=== PATIENT | female | born 1985 | race American Indian/Alaskan Native ===

== ENCOUNTER 2016-08-21 13:41 | Emergency (ER) | payer MEDICAID ==
[2016-08-21] MEDS ORDERED: Ibuprofen 800 MG Tab PO ONE (13:59)
--- NOTE | 2016-08-21 14:00 | EDM.PDOC ---
ED HPI GENERAL MEDICAL PROBLEM - General Stated Complaint: MISSED STEP LEFT KNEE Time Seen by Provider: 08/21/16 14:00 Source of Information: Reports: Patient History Limitations: Reports: No Limitations - History of Present Illness INITIAL COMMENTS - FREE TEXT/NARRATIVE: Presented with painful swollen left Knee following an episode of mechanical Fall last night. Reports that while she was walking down stairs, she missed her step and Fell down last night and landed on her Left Knee. Rates pain as 9/10 in severity. Rates pain as 9/10. She is able to weight bear but reports that pain worsens with ambulation Duration: Day(s): Location: Reports: Lower Extremity, Left Quality: Reports: Sharp Improves with: Reports: None Worsens with: Reports: Movement Associated Symptoms: Reports: No Other Symptoms Right Knee Pain Score (Numeric/FACES): 2 - Related Data Allergies Allergy/AdvReac Type Severity Reaction Status Date / Time No Known Allergies Allergy Verified 08/21/16 14:19 Home Meds: Home Meds Hydrocodone/Acetaminophen [[place] 5-325 Tablet] 1 each PO .Q6H PRN #20 tablet [Rx] Past Medical History HEENT History: Reports: Impaired Vision, Otitis Media, Sinusitis Cardiovascular History: Reports: None Respiratory History: Reports: Asthma, SOB Gastrointestinal History: Reports: GERD Genitourinary History: Reports: None ENDOSCOPY RN History: Reports: Other (See Below) Other OB/BYN History: INVERTED PELVIS Musculoskeletal History: Reports: Back Pain, Chronic Other Musculoskeletal History: rt shoulder dislocation Neurological History: Reports: Migraines Psychiatric History: Reports: None Endocrine/Metabolic History: Reports: Obesity/BMI 30+ Hematologic History: Reports: None Dermatologic History: Reports: Cellulitis - Infectious Disease History Infectious Disease History: Reports: Chicken Pox - Past Surgical History HEENT Surgical History: Reports: Adenoidectomy, Oral Surgery, Tonsillectomy Female Surgical History: Reports: Section Musculoskeletal Surgical History: Reports: Other (See Below) Social & Family History - Family History Family Medical History: Noncontributory - Tobacco Use Smoking Status *Q: Current Every Day Smoker Years of Tobacco use: 10 Packs/Tins Daily: 1 Used Tobacco, but Quit: No Second Hand Smoke Exposure: No - Caffeine Use Caffeine Use: Reports: Coffee - Alcohol Use Days Per Week of Alcohol Use: 1 Number of Drinks Per Day: 6 Total Drinks Per Week: 6 - Recreational Drug Use Recreational Drug Use: No Recreational Drug Type: Reports: Marijuana/Hashish Recreational Drug Use Frequency: Rarely Review of Systems - Review of Systems Review Of Systems: ROS reveals no pertinent complaints other than HPI. Constitutional: Reports: No Symptoms ED EXAM, GENERAL - Physical Exam Exam: See Below Exam Limited By: No Limitations General Appearance: Alert, WD/WN, No Apparent Distress Eye Exam: Bilateral Eye: EOMI Ears: Normal External Exam, Normal Canal, Hearing Grossly Normal, Normal TMs Nose: Normal Inspection, Normal Mucosa, No Blood Throat/Mouth: Normal Inspection, Normal Lips, Normal Teeth, Normal Oropharynx Head: Atraumatic, Normocephalic Neck: Normal Inspection, Supple, Full Range of Motion Respiratory/Chest: No Respiratory Distress, Lungs Clear, Normal Breath Sounds Cardiovascular: Normal Peripheral Pulses, Regular Rate, Rhythm GI/Abdominal: Normal Bowel Sounds, Soft, Non-Tender, No Organomegaly, No Distention Back Exam: Normal Inspection, Full Range of Motion Extremities: Normal Inspection, Normal Range of Motion, Non-Tender, Other (Left knee -- swollen, tender, decreased ROM left knee) Neurological: Alert, Oriented, CN II-XII Intact, Normal Cognition Psychiatric: Normal Affect, Normal Mood Skin Exam: Warm, Dry Lymphatic: No Adenopathy Course - Vital Signs Last Recorded V/S: Last Vital Signs Temp 36.8 C 08/21/16 13:45 Pulse 88 08/21/16 13:45 Resp 20 08/21/16 13:45 BP 152/72 H 08/21/16 13:45 Pulse Ox 98 08/21/16 13:45 - Orders/Labs/Meds Orders: Active Orders 24 hr Category Date Time Status Knee 3V Lt [CR] Stat Exams 08/21/16 13:58 Taken Meds: Medications Discontinued Medications Generic Name Dose Route Start Last Admin Trade Name Freq PRN Reason Stop Dose Admin Ibuprofen 800 mg 08/21/16 13:59 Motrin PO 08/21/16 14:00 ONETIME ONE Departure - Departure Time of Disposition: 14:42 Disposition: Home, Self-Care 01 Condition: Good Clinical Impression: Contusion of knee, Sprain of knee - Discharge Information Prescriptions: Hydrocodone/Acetaminophen [[place] 5-325 Tablet] 1 each PO .Q6H PRN #20 tablet PRN Reason: Pain Instructions: Knee Pain Referrals: Graeme Hein MD [Primary Care Provider] - Forms: ED Department Discharge Additional Instructions: Follow with PCP Smooth for pain Return if symptoms worsen Call your Physician or Return to Emergency Department if: * Your condition worsens in any way. * You develop fever greater than 100.4. * You have vomitting that does not stop with medications. * You have pain that is not controlled with medications. - My Orders Last 24 Hours: My Active Orders 08/21/16 13:58 Knee 3V Lt [CR] Stat - Assessment/Plan Last 24 Hours: My Active Orders 08/21/16 13:58 Knee 3V Lt [CR] Stat
[2016-08-21 14:25] VITALS: BP 152/72
[2016-08-21] MEDS ORDERED: Acetaminophen/HYDROcodone 325-5 MG Tab PO ONE (17:41)
== END 2016-08-21 14:45 | disposition home or self-care (01) ==
LOC: FB.ED 13:41
DX: S80.02XA Contusion of left knee, initial encounter (principal); S83.92XA Sprain of unspecified site of left knee, initial encounter; W10.8XXA Fall (on) (from) other stairs and steps, initial encounter; Y92.9 Unspecified place or not applicable; J45.909 Unspecified asthma, uncomplicated; K21.9 Gastro-esophageal reflux disease without esophagitis; G89.29 Other chronic pain; M54.9 Dorsalgia, unspecified; E66.9 Obesity, unspecified; F17.210 Nicotine dependence, cigarettes, uncomplicated; F12.90 Cannabis use, unspecified, uncomplicated
CPT/HCPCS: 73562; 99283; A9270

== ENCOUNTER 2017-05-08 20:55 | Emergency (ER) | payer MEDICAID, SELFPAY ==
[2017-05-08] MEDS ORDERED: cefTRIAXone 1,000 MG VIAL IM STA (22:14)
--- NOTE | 2017-05-08 22:20 | EDM.PDOC ---
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 No direct trauma. Pt is 16-18 hours on her feet, no DVT in the past, no N/V/D or any other acute medical issues. BP 127/74 pulse 87 RR 18 Temp 36.9 O2 sat 98% on RA. Onset Date: 05/05/17 Onset Time: 06:00 Duration: Day(s):, Getting Worse, Intermittent Location: Reports: Lower Extremity, Right Quality: Reports: Ache, Burning, Dull, Pressure Severity: Moderate Improves with: Reports: Rest Worsens with: Reports: Movement Context: Reports: Other (sedentary lifestyle(?)) Associated Symptoms: Reports: No Other Symptoms Right Lower Leg Pain Score (Numeric/FACES): 2 - Related Data Allergies Allergy/AdvReac Type Severity Reaction Status Date / Time No Known Allergies Allergy Verified 08/21/16 14:19 Home Meds: Home Meds Hydrocodone/Acetaminophen [[place] 5-325 Tablet] 1 each PO .Q6H PRN #20 tablet [Rx] Cephalexin [Keflex] 500 mg PO QID #40 cap 05/08/17 [Rx] Past Medical History - Past Health History Medical/Surgical History: Denies Medical/Surgical History HEENT History: Reports: Impaired Vision, Otitis Media, Sinusitis Cardiovascular History: Reports: None Respiratory History: Reports: Asthma, SOB Gastrointestinal History: Reports: GERD Genitourinary History: Reports: None [employer] History: Reports: Other (See Below) Other OB/BYN History: INVERTED PELVIS Musculoskeletal History: Reports: Back Pain, Chronic Other Musculoskeletal History: rt shoulder dislocation Neurological History: Reports: Migraines Psychiatric History: Reports: None Endocrine/Metabolic History: Reports: Obesity/BMI 30+ Hematologic History: Reports: None Dermatologic History: Reports: Cellulitis - Infectious Disease History Infectious Disease History: Reports: Chicken Pox - Past Surgical History HEENT Surgical History: Reports: Adenoidectomy, Oral Surgery, Tonsillectomy Female Surgical History: Reports: Section Musculoskeletal Surgical History: Reports: Other (See Below) Social & Family History - Family History Family Medical History: Noncontributory - Tobacco Use Smoking Status *Q: Current Every Day Smoker Years of Tobacco use: 15 Packs/Tins Daily: 1 Used Tobacco, but Quit: No Second Hand Smoke Exposure: No - Caffeine Use Caffeine Use: Reports: Coffee, Energy Drinks - Alcohol Use Days Per Week of Alcohol Use: 1 Number of Drinks Per Day: 5 Total Drinks Per Week: 5 - Recreational Drug Use Recreational Drug Use: No Recreational Drug Type: Reports: Marijuana/Hashish Recreational Drug Use Frequency: Rarely Review of Systems - Review of Systems Review Of Systems: See Below Constitutional: Reports: No Symptoms Eyes: Reports: No Symptoms Ears: Reports: No Symptoms Nose: Reports: No Symptoms Mouth/Throat: Reports: No Symptoms Respiratory: Reports: No Symptoms Cardiovascular: Reports: No Symptoms GI/Abdominal: Reports: No Symptoms Genitourinary: Reports: No Symptoms Musculoskeletal: Reports: Leg Pain (right lower leg) Skin: Reports: Rash, Erythema (right lower leg) Neurological: Reports: No Symptoms Psychiatric: Reports: No Symptoms ED EXAM, GENERAL - Physical Exam Exam: See Below Exam Limited By: No Limitations General Appearance: Alert, WD/WN, Obese (morbid) Eye Exam: Bilateral Eye: Normal Inspection Ears: Normal External Exam Ear Exam: Bilateral Ear: Auricle Normal Nose: Normal Inspection Throat/Mouth: Normal Inspection Head: Atraumatic, Normocephalic Neck: Normal Inspection, Supple, Non-Tender, Full Range of Motion Respiratory/Chest: No Respiratory Distress, Lungs Clear, Normal Breath Sounds, No Accessory Muscle Use, Chest Non-Tender Cardiovascular: Normal Peripheral Pulses, Regular Rate, Rhythm, No Edema, No Gallop Peripheral Pulses: 1+: Radial (L) GI/Abdominal: Normal Bowel Sounds, Soft, Non-Tender (Female) Exam: Deferred Rectal (Female) Exam: Deferred Back Exam: Normal Inspection, Full Range of Motion Extremities: Normal Range of Motion, Normal Capillary Refill Neurological: Alert, Oriented, CN II-XII Intact, Normal Cognition, Normal Gait Psychiatric: Normal Affect, Normal Mood Skin Exam: Warm, Dry, Erythema (right lower leg), Rash Lymphatic: No Adenopathy Course - Vital Signs Text/Narrative:: 32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 No direct trauma. Pt is 16-18 hours on her feet, no DVT in the past, no N/V/D or any other acute medical issues. BP 127/74 pulse 87 RR 18 Temp 36.9 O2 sat 98% on RA. PE: 32 y.o.w.f with right lower leg swelling and erythema Imaging: Doppler US R leg neg for DVT pos for cellulitis Impression: Cellulitis R lower extremity Tx: Rocephin 1 gm im Reexam: Improved Plan: D/C with instructions Last Recorded V/S: Last Vital Signs Temp 36.8 C 05/08/17 22:15 Pulse 74 05/08/17 22:15 Resp 15 05/08/17 22:15 BP 127/71 05/08/17 22:15 Pulse Ox 97 05/08/17 22:15 - Orders/Labs/Meds Orders: Active Orders 24 hr Category Date Time Status VL Duplex Lwr Ext Veins Ltd Rt [US] Stat Exams 05/08/17 21:07 Taken CULTURE BLOOD [BC] Urgent Lab 05/08/17 21:15 Received CULTURE BLOOD [BC] Urgent Lab 05/08/17 21:20 Received Blood Culture x2 Reflex Set [OM.PC] Urgent Oth 05/08/17 21:06 Ordered Labs: Laboratory Tests 05/08/17 05/08/17 05/08/17 Range/Units 21:15 21:15 21:15 WBC 9.4 (4.5-12.0) X10-3/uL RBC 4.75 (3.23-5.20) x10(6)uL Hgb 14.7 (11.5-15.5) g/dL Hct 43.2 (30.0-51.3) % MCV 90.9 (80-96) fL MCH 31.0 (27.7-33.6) pg MCHC 34.1 (32.2-35.4) g/dL RDW 13.0 (11.5-15.5) % Plt Count 324 (125-369) X10(3)uL MPV 8.3 (7.4-10.4) fL Neut % (Auto) 63.5 (46-82) % Lymph % (Auto) 21.9 (13-37) % [place] % (Auto) 7.1 (4-12) % Eos % (Auto) 4 (1.0-5.0) % Baso % (Auto) 3 H (0-2) % Neut # (Auto) 5.9 (1.6-8.3) # Lymph # (Auto) 2.1 (0.6-5.0) # [place] # (Auto) 0.7 (0.0-1.3) # Eos # (Auto) 0.4 (0.0-0.8) # Baso # (Auto) 0.3 H (0.0-0.2) # PT 10.0 (8.7-11.1) INR 0.99 (0.89-1.13) Sodium 142 (135-145) mmol/L Potassium 3.8 (3.5-5.3) mmol/L Chloride 104 (100-110) mmol/L Carbon Dioxide 27 (21-32) mmol/L BUN 9 (7-18) mg/dL Creatinine 0.8 (0.55-1.02) mg/dL Est Cr Clr Drug Dosing 80.59 mL/min Estimated GFR (MDRD) > 60 (>60) BUN/Creatinine Ratio 11.3 (9-20) Glucose 106 (80-116) mg/dL Calcium 8.7 (8.6-10.2) mg/dL Meds: Medications Discontinued Medications Generic Name Dose Route Start Last Admin Trade Name Freq PRN Reason Stop Dose Admin Ceftriaxone Sodium 1,000 mg 05/08/17 22:14 05/08/17 22:24 Rocephin IM 05/08/17 22:15 1,000 mg ONETIME STA Administration Departure - Departure Time of Disposition: 22:16 Disposition: Home, Self-Care 01 Condition: Good Clinical Impression: Cellulitis of leg without foot, right - Discharge Information Prescriptions: Cephalexin [Keflex] 500 mg PO QID #40 cap Instructions: Cellulitis, Adult Referrals: Graeme Hein MD [Primary Care Provider] - Forms: ED Department Discharge Additional Instructions: Rest, Ice and elevation if possible, please keep your lag dry and clean. Please take the Abx as recommended, please f/u, come back to the ED if your symptoms get worse acutely. Motrin for pain. - My Orders Last 24 Hours: My Active Orders 05/08/17 21:06 Blood Culture x2 Reflex Set [OM.PC] Urgent 05/08/17 21:07 VL Duplex Lwr Ext Veins Ltd Rt [US] Stat 05/08/17 21:15 CULTURE BLOOD [BC] Urgent 05/08/17 21:20 CULTURE BLOOD [BC] Urgent - Assessment/Plan Last 24 Hours: My Active Orders 05/08/17 21:06 Blood Culture x2 Reflex Set [OM.PC] Urgent 05/08/17 21:07 VL Duplex Lwr Ext Veins Ltd Rt [US] Stat 05/08/17 21:15 CULTURE BLOOD [BC] Urgent 05/08/17 21:20 CULTURE BLOOD [BC] Urgent
[2017-05-08 22:41] VITALS: BP 127/71
--- NOTE | 2017-05-09 15:28 | US ---
INDICATION: Swelling right calf, question DVT. DUPLEX ULTRASOUND, RIGHT LOWER EXTREMITY VEINS: Utilizing 2-D real time, duplex Doppler spectral analysis and color flow imaging, examination of the right lower extremity veins revealed no evidence of deep venous thrombosis or obstruction. Compression views showed no abnormal lack of compression to suggest thrombosis. No evidence of incompetence of the valves was identified. IMPRESSION: Duplex ultrasound, right lower extremity veins, shows no evidence of deep venous thrombosis or incompetence. MTDD
== END 2017-05-08 22:41 | disposition home or self-care (01) ==
LOC: FB.ED 20:55
DX: L03.115 Cellulitis of right lower limb (principal); F17.210 Nicotine dependence, cigarettes, uncomplicated
CPT/HCPCS: 36415; 80048; 85025; 85610; 87040; 93971-RT; 96372; 99284; J0696

== ENCOUNTER 2017-11-25 16:50 | Emergency (ER) | payer MEDICAID ==
[2017-11-25] MEDS ORDERED: Albuterol 8 GM Inhaler INH ONE (16:51)
[2017-11-25] MEDS ORDERED: Albuterol 0.083% 2.5 MG/3 ML Neb Soln NEB ONE (17:26)
--- NOTE | 2017-11-25 17:31 | EDM.PDOC ---
ED HPI GENERAL MEDICAL PROBLEM - General Chief Complaint: Respiratory Problem Stated Complaint: sob Time Seen by Provider: 11/25/17 17:27 Source of Information: Reports: Patient History Limitations: Reports: No Limitations - History of Present Illness INITIAL COMMENTS - FREE TEXT/NARRATIVE: Presents with 2 days of nasal congestion, sinus pain, productive cough, and chest pain with cough. Patient is 21 weeks with EDC 03/31/18. Duration: Day(s): (2) Severity: Moderate Associated Symptoms: Reports: Shortness of Breath - Related Data Allergies Allergy/AdvReac Type Severity Reaction Status Date / Time No Known Allergies Allergy Verified 08/21/16 14:19 Home Meds: Home Meds Azithromycin [Zithromax] 250 mg PO DAILY #4 tab 11/25/17 [Rx] Past Medical History HEENT History: Reports: Impaired Vision, Otitis Media, Sinusitis Cardiovascular History: Reports: None Respiratory History: Reports: Asthma Gastrointestinal History: Reports: GERD Genitourinary History: Reports: None RN ORTHOPAEDIC History: Reports: Other (See Below) Other RN ORTHOPAEDIC History: INVERTED PELVIS Musculoskeletal History: Reports: Back Pain, Chronic Other Musculoskeletal History: rt shoulder dislocation Neurological History: Reports: Migraines Psychiatric History: Reports: None Endocrine/Metabolic History: Reports: Obesity/BMI 30+ Hematologic History: Reports: None Dermatologic History: Reports: Cellulitis - Infectious Disease History Infectious Disease History: Reports: Chicken Pox - Past Surgical History HEENT Surgical History: Reports: Adenoidectomy, Oral Surgery, Tonsillectomy Female Surgical History: Reports: Section Musculoskeletal Surgical History: Reports: Other (See Below) Social & Family History - Family History Family Medical History: Noncontributory - Tobacco Use Smoking Status *Q: Current Every Day Smoker Tobacco Use Within Last Twelve Months: Cigarettes - Caffeine Use Caffeine Use: Reports: Coffee, Energy Drinks ED ROS GENERAL - Review of Systems Review Of Systems: See Below Constitutional: Reports: No Symptoms HEENT: Reports: No Symptoms, Sinus Problem (pressure), Other (Nasal congestion) Respiratory: Reports: Cough Cardiovascular: Reports: No Symptoms, Chest Pain (with cough) Endocrine: Reports: No Symptoms GI/Abdominal: Reports: No Symptoms : Reports: No Symptoms Musculoskeletal: Reports: No Symptoms ED EXAM, GENERAL - Physical Exam Exam: See Below Exam Limited By: No Limitations General Appearance: Alert, WD/WN, No Apparent Distress Ears: Other (right TM perforation (chronic)) Nose: Nasal Drainage, Other (bilateral maxillary sinus tenderness) Throat/Mouth: Normal Oropharynx Head: Atraumatic, Normocephalic Neck: Full Range of Motion Respiratory/Chest: No Respiratory Distress, Decreased Breath Sounds, Wheezing Cardiovascular: Regular Rate, Rhythm, No Murmur GI/Abdominal: No Distention Extremities: Normal Range of Motion Neurological: Alert, Normal Cognition, No Motor/Sensory Deficits Psychiatric: Normal Affect, Normal Mood Skin Exam: Warm, Dry, Intact Course - Orders/Labs/Meds Orders: Active Orders 24 hr Category Date Time Status RT Aerosol Therapy [RC] ASDIRECTED Care 11/25/17 17:26 Active Meds: Medications Discontinued Medications Generic Name Dose Route Start Last Admin Trade Name Freq PRN Reason Stop Dose Admin Albuterol 2.5 mg 11/25/17 17:26 11/25/17 17:31 Proventil Neb Soln NEB 11/25/17 17:27 2.5 mg ONETIME ONE Administration - Re-Assessments/Exams Free Text/Narrative Re-Assessment/Exam: 11/25/17 18:08 Symptoms improved after Albuterol Nebulizer treatment. Slight expiratory wheeze on re-exam, good aeration. 11/25/17 18:11 Ventolin inhaler dispensed in the ED Departure - Departure Time of Disposition: 18:10 Disposition: Home, Self-Care 01 Condition: Good Clinical Impression: Exacerbation of asthma Qualifiers: Asthma severity: moderate Asthma persistence: unspecified Qualified Code(s): J45.901 - Unspecified asthma with (acute) exacerbation Sinusitis Qualifiers: Sinusitis location: unspecified location Chronicity: acute Recurrence: non- recurrent Qualified Code(s): J01.90 - Acute sinusitis, unspecified - Discharge Information *PRESCRIPTION DRUG MONITORING PROGRAM REVIEWED*: No *COPY OF PRESCRIPTION DRUG MONITORING REPORT IN PATIENT DELILAH: Not Applicable Prescriptions: Azithromycin [Zithromax] 250 mg PO DAILY #4 tab Instructions: Sinusitis, Adult, [id number], Asthma, Adult Referrals: Graeme Hein MD [Primary Care Provider] - Forms: ED Department Discharge Additional Instructions: Use the Ventolin inhaler 2 puffs q4 hours as needed. Fill prescription for Zithromax and start tomorrow. Use steam inhalation as needed for nasal congestion. Follow up with your primary physician in 2 days. Return to the ER if symptoms worsen. - My Orders Last 24 Hours: My Active Orders 11/25/17 17:26 RT Aerosol Therapy [RC] ASDIRECTED - Assessment/Plan Last 24 Hours: My Active Orders 11/25/17 17:26 RT Aerosol Therapy [RC] ASDIRECTED
[2017-11-25] MEDS ORDERED: Azithromycin 500 MG Tab PO ONE (18:09)
[2017-11-25 18:43] VITALS: BP 119/51
== END 2017-11-25 18:28 | disposition home or self-care (01) ==
LOC: FB.ED 16:50
DX: O99.512 Diseases of the respiratory system complicating pregnancy, second trimester (principal); J45.901 Unspecified asthma with (acute) exacerbation; J01.90 Acute sinusitis, unspecified; O99.212 Obesity complicating pregnancy, second trimester; O99.332 Smoking (tobacco) complicating pregnancy, second trimester; F17.210 Nicotine dependence, cigarettes, uncomplicated; Z3A.21 21 weeks gestation of pregnancy
CPT/HCPCS: 94640; 99283; A9270

== ENCOUNTER 2018-03-18 12:07 | Emergency (ER) | payer MEDICAID ==
[2018-03-18] MEDS ORDERED: Albuterol 0.083% 2.5 MG/3 ML Neb Soln NEB ONE (12:39)
--- NOTE | 2018-03-18 12:57 | EDM.PDOC ---
ED HPI GENERAL MEDICAL PROBLEM - General Chief Complaint: Respiratory Problem Stated Complaint: COUGHING ALOT Time Seen by Provider: 03/18/18 12:30 Source of Information: Reports: Patient History Limitations: Reports: No Limitations - History of Present Illness INITIAL COMMENTS - FREE TEXT/NARRATIVE: 33 y.o.w.f 9 m , C section scheduled for 03/31/2018, quit tobacco use 3 days ago, came to the ed because of cough for 3 days. Pt started to have a prod cough since she quit tobacco use. No N/V/D or any other acute medical issues. BP 97/67 Pulse 81 RR 18 Pulse ox 98% on RA Temp 36.7 Onset Date: 03/18/18 Onset Time: 05:00 Duration: Hour(s): Location: Reports: Chest Quality: Reports: Other Severity: Mild Improves with: Reports: None Worsens with: Reports: None Context: Reports: Other (smoker) Associated Symptoms: Reports: Cough (productive) left uppe abdomen Pain Score (Numeric/FACES): 10 - Related Data Allergies Allergy/AdvReac Type Severity Reaction Status Date / Time No Known Allergies Allergy Verified 03/18/18 12:37 Home Meds: Home Meds Azithromycin [Zithromax] 250 mg PO DAILY #6 tab 03/18/18 [Rx] Past Medical History HEENT History: Reports: Impaired Vision, Otitis Media, Sinusitis Cardiovascular History: Reports: None Respiratory History: Reports: Asthma Gastrointestinal History: Reports: GERD Genitourinary History: Reports: None LAUNDRY PRESSER History: Reports: Other (See Below) Other LAUNDRY PRESSER History: INVERTED PELVIS Musculoskeletal History: Reports: Back Pain, Chronic Other Musculoskeletal History: rt shoulder dislocation Neurological History: Reports: Migraines Psychiatric History: Reports: None Endocrine/Metabolic History: Reports: Obesity/BMI 30+ Hematologic History: Reports: None Dermatologic History: Reports: Cellulitis - Infectious Disease History Infectious Disease History: Reports: Chicken Pox - Past Surgical History HEENT Surgical History: Reports: Adenoidectomy, Oral Surgery, Tonsillectomy Female Surgical History: Reports: Section Musculoskeletal Surgical History: Reports: Other (See Below) Social & Family History - Family History Family Medical History: Noncontributory - Caffeine Use Caffeine Use: Reports: Coffee, Energy Drinks ED ROS GENERAL - Review of Systems Review Of Systems: See Below Constitutional: Reports: No Symptoms HEENT: Reports: No Symptoms Respiratory: Reports: Cough Cardiovascular: Reports: No Symptoms Endocrine: Reports: No Symptoms GI/Abdominal: Reports: No Symptoms : Reports: No Symptoms Musculoskeletal: Reports: No Symptoms Skin: Reports: No Symptoms Neurological: Reports: No Symptoms Psychiatric: Reports: No Symptoms Hematologic/Lymphatic: Reports: No Symptoms Immunologic: Reports: No Symptoms ED EXAM, GENERAL - Physical Exam Exam: See Below Exam Limited By: No Limitations General Appearance: Alert, WD/WN, Mild Distress, Obese Eye Exam: Bilateral Eye: Normal Inspection Ears: Normal External Exam Ear Exam: Bilateral Ear: Auricle Normal Nose: Normal Inspection, Normal Mucosa, No Blood Throat/Mouth: Normal Inspection, Normal Lips, Normal Voice, No Airway Compromise Head: Atraumatic, Normocephalic Neck: Normal Inspection, Supple, Non-Tender, Full Range of Motion Respiratory/Chest: No Respiratory Distress, No Accessory Muscle Use, Chest Non- Tender, Rhonchi Cardiovascular: Normal Peripheral Pulses, Regular Rate, Rhythm, No Edema, No Gallop, No JVD, No Murmur, No Rub Peripheral Pulses: 2+: Brachial (L) GI/Abdominal: Normal Bowel Sounds, Soft, Non-Tender, No Organomegaly, No Abnormal Bruit, No Mass, Pelvis Stable (Female) Exam: Deferred Rectal (Female) Exam: Deferred Back Exam: Normal Inspection, Full Range of Motion Extremities: Normal Inspection, Normal Range of Motion, Non-Tender, No Pedal Edema Neurological: Alert, Oriented, CN II-XII Intact, Normal Cognition, Normal Gait Psychiatric: Normal Affect, Normal Mood Skin Exam: Warm, Dry, Intact, Normal Color, No Rash Lymphatic: No Adenopathy Course - Vital Signs Text/Narrative:: 33 y.o.w.f 9 m , C section scheduled for 03/31/2018, quit tobacco use 3 days ago, came to the ed because of cough for 3 days. Pt started to have a prod cough since she quit tobacco use. No N/V/D or any other acute medical issues. BP 97/67 Pulse 81 RR 18 Pulse ox 98% on RA Temp 36.7 PE: WNWD WF, obese, 9 m with a prod cough Impression; Chronic bronchitis with acute exacerbation Tx: Albuterol inh, Zitromax as a prescription Reexam: Improved Plan: D/C with instructions Last Recorded V/S: Last Vital Signs Temp 36.7 C 03/18/18 12:30 Pulse 74 03/18/18 13:01 Resp 17 03/18/18 13:01 BP 109/67 03/18/18 13:01 Pulse Ox 98 03/18/18 13:01 - Orders/Labs/Meds Orders: Active Orders 24 hr Category Date Time Status RT Aerosol Therapy [RC] ASDIRECTED Care 03/18/18 12:39 Active Meds: Medications Discontinued Medications Generic Name Dose Route Start Last Admin Trade Name Corinne PRN Reason Stop Dose Admin Albuterol 2.5 mg 03/18/18 12:39 03/18/18 12:44 Proventil Neb Soln NEB 03/18/18 12:40 2.5 mg ONETIME ONE Administration Departure - Departure Time of Disposition: 12:52 Disposition: Home, Self-Care 01 Condition: Good Clinical Impression: , Acute bronchitis - Discharge Information Prescriptions: Azithromycin [Zithromax] 250 mg PO DAILY #6 tab Instructions: Acute Bronchitis, Adult Referrals: Graeme Hein MD [Primary Care Provider] - Forms: ED Department Discharge, ED Return to Work/School Form Additional Instructions: Please quit smoking, please take the meds as recommended, f/u, come back if your symptoms get worse acutely - My Orders Last 24 Hours: My Active Orders 03/18/18 12:39 RT Aerosol Therapy [RC] ASDIRECTED - Assessment/Plan Last 24 Hours: My Active Orders 03/18/18 12:39 RT Aerosol Therapy [RC] ASDIRECTED
[2018-03-18 13:24] VITALS: BP 109/67
== END 2018-03-18 13:10 | disposition home or self-care (01) ==
LOC: FB.ED 12:07
DX: O99.513 Diseases of the respiratory system complicating pregnancy, third trimester (principal); J20.9 Acute bronchitis, unspecified; O99.213 Obesity complicating pregnancy, third trimester; O99.89 Other specified diseases and conditions complicating pregnancy, childbirth and the puerperium; G43.909 Migraine, unspecified, not intractable, without status migrainosus; J45.909 Unspecified asthma, uncomplicated; Z3A.00 Weeks of gestation of pregnancy not specified; Z87.891 Personal history of nicotine dependence
CPT/HCPCS: 94640; 99283

== ENCOUNTER 2018-03-26 07:15 | Inpatient (IN) | payer MEDICAID ==
[~2018-03-26 07:15] MED LIST: Albuterol/Ipratropium 3.0-0.5 MG/3 ML Neb Soln NEB ONE; Citric Acid/Sodium Citrate Solution 30 ML Cup PO ONE; Lactated Ringers 1,000 ML IV SCH; Scopolamine 1.5 MG Transdermal Patch TOP ONE; Sodium Chloride 0.9% 10 ML Syringe FLUSH PRN
[2018-03-26] MEDS ORDERED: Lactated Ringers 1,000 ML IV SCH (08:00)
[2018-03-26] MEDS ORDERED: ePHEDrine 50 MG/ML SDV IV ONE (10:00)
[2018-03-26] MEDS ORDERED: Midazolam 1 MG/ML 2 ML SDV IV ONE (10:00)
[2018-03-26] MEDS ORDERED: diphenhydrAMINE 50 MG/ML SDV IVPUSH ONE (10:00)
[2018-03-26] MEDS ORDERED: Ondansetron 4 MG/2 ML SDV IVPUSH ONE (10:00)
[2018-03-26] MEDS ORDERED: Morphine PF 10 MG/10 ML SDV IV ONE (10:00)
[2018-03-26] MEDS ORDERED: fentaNYL 100 MCG/2 ML SDV IV ONE (10:00)
[2018-03-26] MEDS ORDERED: Ketorolac 15 MG/ML SDV IVPUSH PRN (10:23)
[2018-03-26] MEDS ORDERED: Ondansetron 4 MG/2 ML SDV IVPUSH PRN (10:23)
[2018-03-26] MEDS ORDERED: Naloxone 0.4 MG/ML SDV IVPUSH PRN ×2 (10:23→10:29)
[2018-03-26] MEDS ORDERED: Nalbuphine 10 MG/1 ML Vial IVPUSH PRN (10:23)
[2018-03-26] MEDS ORDERED: Morphine 2 MG/ML Syringe IVPUSH PRN (10:23)
[2018-03-26] MEDS ORDERED: diphenhydrAMINE 50 MG/ML SDV IVPUSH PRN (10:29)
[2018-03-26] MEDS ORDERED: ePHEDrine 50 MG/ML SDV IVPUSH PRN (10:29)
[2018-03-26] MEDS: diphenhydrAMINE 50 MG/ML SDV IV PRN (12:00)
[2018-03-26] MEDS: Lactated Ringers 1,000 ML IV SCH ×3 (12:08→20:49)
[2018-03-26] MEDS: hydrOXYzine HCl 50 MG/ML SDV IM PRN ×2 (14:11→21:15)
[2018-03-27] MEDS: Lactated Ringers 1,000 ML IV SCH ×2 (00:44→04:40)
[2018-03-27] MEDS: diphenhydrAMINE 50 MG/ML SDV IV PRN (08:34)
--- NOTE | 2018-03-27 09:00 | PCM.PNPP ---
- General Info Date of Service: 03/27/18 Subjective Update: Itching,pain well controlled. Functional Status: Reports: Pain Controlled, Tolerating Diet - Review of Systems General: Reports: No Symptoms HEENT: Reports: No Symptoms Pulmonary: Reports: No Symptoms Cardiovascular: Reports: No Symptoms Gastrointestinal: Reports: No Symptoms Genitourinary: Reports: No Symptoms Musculoskeletal: Reports: No Symptoms Skin: Reports: No Symptoms Neurological: Reports: No Symptoms Psychiatric: Reports: No Symptoms - Patient Data Vital Signs - Most Recent: Last Vital Signs Temp 98.1 F 03/27/18 00:42 Pulse 75 03/27/18 00:42 Resp 18 03/27/18 00:42 BP 101/64 03/27/18 00:42 Pulse Ox 96 03/27/18 00:42 Weight - Most Recent: 123.831 kg I&O - Last 24 Hours: Intake & Output 03/26/18 03/27/18 03/27/18 22:59 06:59 14:59 Intake Total 1150 4262 Output Total 200 800 Balance 950 3462 Med Orders - Current: Current Medications Diphenhydramine HCl (Benadryl) 25 mg IV ONETIME PRN PRN Reason: Pruritus Last Admin: 03/27/18 08:34 Dose: 25 mg Diphenhydramine HCl (Benadryl) 25 mg IVPUSH Q6H PRN PRN Reason: Itching or Nausea Ephedrine Sulfate (Ephedrine Sulfate) 5 mg IVPUSH ASDIRECTED PRN PRN Reason: Other Hydroxyzine HCl (Vistaril) 50 mg IM Q6H PRN PRN Reason: Itching Last Admin: 03/26/18 21:15 Dose: 50 mg Lactated Ringer's (Ringers, Lactated) 1,000 mls @ 250 mls/hr IV ASDIRECTED DEISY Last Admin: 03/27/18 04:40 Dose: 250 mls/hr Ketorolac Tromethamine (Toradol) 15 mg IVPUSH Q6H PRN PRN Reason: Pain Stop: 03/31/18 10:26 Last Admin: 03/27/18 08:37 Dose: 15 mg Miscellaneous Information (Remove Patch) 1 ea TRDERM ONETIME ONE Stop: 03/28/18 07:01 Morphine Sulfate (Morphine) 2 mg IVPUSH Q1H PRN PRN Reason: Pain Nalbuphine HCl (Nubain) 10 mg IVPUSH Q1H PRN PRN Reason: Pruritus Naloxone HCl (Narcan) 0.1 mg IVPUSH ONETIME PRN PRN Reason: Oversedation Naloxone HCl (Narcan) 0.1 mg IVPUSH ONETIME PRN PRN Reason: Respiratory Depression Ondansetron HCl (Zofran) 4 mg IVPUSH Q6H PRN PRN Reason: Nausea/Vomiting Sodium Chloride (Saline Flush) 10 ml FLUSH ASDIRECTED PRN PRN Reason: Keep Vein Open Last Admin: 03/26/18 08:30 Dose: 10 ml Discontinued Medications Albuterol/Ipratropium (Duoneb 3.0-0.5 Mg/3 Ml) 3 ml NEB ONETIME ONE Stop: 03/26/18 07:01 Albuterol/Ipratropium (Duoneb 3.0-0.5 Mg/3 Ml) 3 ml NEB ONETIME ONE Stop: 03/26/18 07:01 Last Admin: 03/26/18 07:53 Dose: 3 ml Citric Acid/Sodium Citrate (Bicitra Solution) 30 ml PO ONETIME ONE Stop: 03/26/18 07:01 Last Admin: 03/26/18 08:41 Dose: 30 ml Cefazolin Sodium 3 gm/ Sodium (Chloride) 100 mls @ 100 mls/hr IV ONETIME ONE Stop: 03/26/18 09:59 Last Admin: 03/26/18 08:41 Dose: 100 mls/hr Lactated Ringer's (Ringers, Lactated) 1,000 mls @ 999 mls/hr IV .BOLUS DEISY Stop: 03/26/18 09:30 Last Admin: 03/26/18 08:30 Dose: 999 mls/hr Lactated Ringer's (Ringers, Lactated) 1,000 mls @ 125 mls/hr IV ASDIRECTED DEISY Scopolamine (Transderm-Scop) 1.5 mg TOP ONETIME ONE Stop: 03/26/18 07:01 Last Admin: 03/26/18 08:40 Dose: 1.5 mg - Interaction Infant Disposition, : [place] in Room with Family Infant Feeding: Attempted ; Nursed Fair/Poor Support Person: Sister - Recovery Exam Fundal Tone: Firm Fundal Level: At Umbilicus Fundal Placement: Midline Lochia Amount: Small Lochia Color: Rubra/Red Episiotomy/Laceration: None Bladder Status: Indwelling Catheter in Place Urinary Elimination: Indwelling Catheter - Exam General: Alert, Oriented HEENT: Pupils Equal Neck: Supple Lungs: Normal Respiratory Effort, Rhonchi, Wheezing Cardiovascular: Regular Rate, Regular Rhythm GI/Abdominal Exam: Normal Bowel Sounds, Soft, Non-Tender, No Organomegaly, No Distention, No Abnormal Bruit, No Mass, Pelvis Stable Extremities: Normal Inspection, Normal Range of Motion, Non-Tender, No Pedal Edema, Normal Capillary Refill Skin: Warm, Dry, Intact Wound/Incisions: Healing Well Neurological: No New Focal Deficit Psy/Mental Status: Alert, Normal Affect, Normal Mood - Problem List & Annotations (1) exam SNOMED Code(s): 626028419, 039471308 Code(s): Z39.2 - ENCOUNTER FOR ROUTINE FOLLOW-UP Status: Acute Current Visit: Yes (2) Asthma SNOMED Code(s): 591631104 Code(s): J45.909 - UNSPECIFIED ASTHMA, UNCOMPLICATED Status: Acute Current Visit: Yes Qualifiers: Asthma severity: moderate (3) Pruritus SNOMED Code(s): 251170887 Code(s): L29.9 - PRURITUS, UNSPECIFIED Status: Acute Current Visit: Yes (4) Obesity SNOMED Code(s): 408508072, 791537825 Code(s): E66.9 - OBESITY, UNSPECIFIED Status: Chronic Current Visit: Yes Qualifiers: Obesity type: due to excess calories (5) Status post SNOMED Code(s): 126878023, 180289748 Code(s): Z98.891 - HISTORY OF UTERINE SCAR FROM PREVIOUS SURGERY Status: Acute Current Visit: Yes - Problem List Review Problem List Initiated/Reviewed/Updated: Yes - My Orders Last 24 Hours: My Active Orders 03/26/18 09:00 Knowles Catheter Insertion [Insert Urinary Catheter] [OM.PC] Q24H 03/26/18 10:29 Intake and Output [RC] 06,14,22 RT Incentive Spirometry [RC] Q4HWA Wound Care [RC] QSHIFT Naloxone [Narcan] 0.1 mg IVPUSH ONETIME PRN diphenhydrAMINE [Benadryl] 25 mg IVPUSH Q6H PRN ePHEDrine [ePHEDrine sulfate] 5 mg IVPUSH ASDIRECTED PRN 03/26/18 10:30 Lactated Ringers [Ringers, Lactated] 1,000 ml IV ASDIRECTED 03/26/18 13:47 hydrOXYzine HCl [Vistaril] 50 mg IM Q6H PRN 03/26/18 Dinner Regular Diet [DIET] 03/27/18 08:55 Urinary Catheter Removal [RC] Per Unit Routine Acetaminophen/HYDROcodone [[place] 325-5 MG] 1 tab PO Q6H PRN hydrOXYzine pamoate [Vistaril] 50 mg PO Q6H PRN Peripheral IV Discontinue [OM.PC] Routine 03/27/18 09:00 Enoxaparin [Lovenox] 40 mg SUBCUT Q24H Ibuprofen [Motrin] 600 mg PO Q6H predniSONE 20 mg PO BID 03/28/18 07:00 Remove Patch 1 devante MCFADDEN ONETIME ONE - Plan Plan:: I will discontinue IV fluids, Knowles. Also prednisone 20 twice a day for asthma exacerbation itching. I will also start pharmacologic DVT prophylaxis due to BMI , and sedentary lifestyle.
[2018-03-27] MEDS: Acetaminophen/HYDROcodone 325-5 MG Tab PO PRN (10:27)
[2018-03-27] MEDS: Enoxaparin 40 MG/0.4 ML Syringe SUBCUT SCH (10:28)
[2018-03-27] MEDS: predniSONE 20 MG Tab PO SCH ×2 (10:28→20:16)
--- NOTE | 2018-03-27 11:10 | OR ---
DATE OF OPERATION: 03/26/2018 SURGEON: Graeme Hein MD ACCESS CONTROL SPECIALIST: Luis Carlos Glynn MD. ANESTHESIA: Spinal. PREOPERATIVE DIAGNOSES: 1. Intrauterine at 39 weeks. 2. History of previous section x1 and the patient desires repeat section. 3. Hypertension. 4. Tobacco abuse. 5. Asthma. POSTOPERATIVE DIAGNOSES: 1. Intrauterine at 39 weeks. 2. History of previous section x1 and the patient desires repeat section. 3. Hypertension. 4. Tobacco abuse. 5. Asthma. PROCEDURE PERFORMED: Repeat section. ESTIMATED BLOOD LOSS: About 500 mL. COMPLICATIONS: None. FINDINGS: Male infant, cephalic presentation with score of 9 and 9 at nine and ten minutes. Normal uterus, tubes, and ovaries. PROCEDURE IN DETAIL: The patient was taken to the OR. Anesthesia was administered without difficulty. The patient was prepped and draped in the usual sterile fashion in the dorsal supine position with a leftward tilt. A Pfannenstiel incision was made in the skin with a scalpel and carried through to the underlying fascia. The fascia was incised in the middle and extended laterally using Kramer scissors. Barb clamps were used to elevate the superior and inferior aspects and the muscle was bluntly and sharply dissected. The peritoneum was entered bluntly. Bladder blade was inserted and the vesicouterine peritoneum reflection was made. The uterus was then entered sharply and extended digitally with the surgeon's fingers. Clear fluid was noted. The infant was subsequently delivered. Then, mouth was suctioned and the nose. The cord was cut and clamped, and the baby was handed to the awaiting nurses. He was vigorous. A 3-vessel placenta was delivered spontaneously. The uterus was then exteriorized and cleared of all clots and debris. It was closed in 2 layers using 1-0 Vicryl, and hemostasis was achieved and visualized to be so. After irrigation, the uterus was returned to the maternal abdomen. The rectus fascia was closed in a running stitch of 1-0 Vicryl and thereafter the subcutaneous and skin were closed with a 3-0 running stitch. There were no complications. Please note, that the patient got 3 g of Ancef preoperatively and the count for instruments, sponge, laps were correct x3. The patient was transferred to the recovery room in stable condition. /[id number] KENISHA/KHADIJAH MTDD
[2018-03-27] MEDS: Ibuprofen 600 MG Tab PO SCH ×2 (15:05→20:16)
[2018-03-28] MEDS: Ibuprofen 600 MG Tab PO SCH ×3 (03:00→14:54)
[2018-03-28] MEDS: Enoxaparin 40 MG/0.4 ML Syringe SUBCUT SCH (09:20)
[2018-03-28] MEDS: predniSONE 20 MG Tab PO SCH (09:20)
[2018-03-28] MEDS: Acetaminophen/HYDROcodone 325-5 MG Tab PO PRN ×2 (09:20→18:10)
--- NOTE | 2018-03-28 09:26 | PCM.PNPP ---
- General Info Date of Service: 03/28/18 Functional Status: Reports: Pain Controlled - Review of Systems General: Reports: No Symptoms HEENT: Reports: No Symptoms Pulmonary: Reports: No Symptoms Cardiovascular: Reports: No Symptoms Gastrointestinal: Reports: No Symptoms Genitourinary: Reports: No Symptoms Musculoskeletal: Reports: No Symptoms Skin: Reports: No Symptoms Neurological: Reports: No Symptoms Psychiatric: Reports: No Symptoms - General Info Date of Service: 03/28/18 - Patient Data Vital Signs - Most Recent: Last Vital Signs Temp 98.3 F 03/27/18 17:54 Pulse 58 L 03/27/18 17:54 Resp 20 03/27/18 17:54 BP 116/58 L 03/27/18 17:54 Pulse Ox 95 03/27/18 17:54 Weight - Most Recent: 123.831 kg Med Orders - Current: Current Medications Hydrocodone Bitart/Acetaminophen ([place] 325-5 Mg) 1 tab PO Q6H PRN PRN Reason: Breakthrough Pain Last Admin: 03/28/18 09:20 Dose: 1 tab Diphenhydramine HCl (Benadryl) 25 mg IV ONETIME PRN PRN Reason: Pruritus Last Admin: 03/27/18 08:34 Dose: 25 mg Diphenhydramine HCl (Benadryl) 25 mg IVPUSH Q6H PRN PRN Reason: Itching or Nausea Enoxaparin Sodium (Lovenox) 40 mg SUBCUT DAILY [facility] Last Admin: 03/28/18 09:20 Dose: 40 mg Ephedrine Sulfate (Ephedrine Sulfate) 5 mg IVPUSH ASDIRECTED PRN PRN Reason: Other Hydroxyzine HCl (Vistaril) 50 mg IM Q6H PRN PRN Reason: Itching Last Admin: 03/26/18 21:15 Dose: 50 mg Hydroxyzine Pamoate (Vistaril) 50 mg PO Q6H PRN PRN Reason: Itching Ibuprofen (Motrin) 600 mg PO Q6H [facility] Last Admin: 03/28/18 09:19 Dose: 600 mg Morphine Sulfate (Morphine) 2 mg IVPUSH Q1H PRN PRN Reason: Pain Nalbuphine HCl (Nubain) 10 mg IVPUSH Q1H PRN PRN Reason: Pruritus Naloxone HCl (Narcan) 0.1 mg IVPUSH ONETIME PRN PRN Reason: Oversedation Naloxone HCl (Narcan) 0.1 mg IVPUSH ONETIME PRN PRN Reason: Respiratory Depression Ondansetron HCl (Zofran) 4 mg IVPUSH Q6H PRN PRN Reason: Nausea/Vomiting Prednisone (Prednisone) 20 mg PO BID [facility] Last Admin: 03/28/18 09:20 Dose: 20 mg Sodium Chloride (Saline Flush) 10 ml FLUSH ASDIRECTED PRN PRN Reason: Keep Vein Open Last Admin: 03/26/18 08:30 Dose: 10 ml Discontinued Medications Albuterol/Ipratropium (Duoneb 3.0-0.5 Mg/3 Ml) 3 ml NEB ONETIME ONE Stop: 03/26/18 07:01 Albuterol/Ipratropium (Duoneb 3.0-0.5 Mg/3 Ml) 3 ml NEB ONETIME ONE Stop: 03/26/18 07:01 Last Admin: 03/26/18 07:53 Dose: 3 ml Citric Acid/Sodium Citrate (Bicitra Solution) 30 ml PO ONETIME ONE Stop: 03/26/18 07:01 Last Admin: 03/26/18 08:41 Dose: 30 ml Cefazolin Sodium 3 gm/ Sodium (Chloride) 100 mls @ 100 mls/hr IV ONETIME ONE Stop: 03/26/18 09:59 Last Admin: 03/26/18 08:41 Dose: 100 mls/hr Lactated Ringer's (Ringers, Lactated) 1,000 mls @ 999 mls/hr IV .BOLUS [facility] Stop: 03/26/18 09:30 Last Admin: 03/26/18 08:30 Dose: 999 mls/hr Lactated Ringer's (Ringers, Lactated) 1,000 mls @ 125 mls/hr IV ASDIRECTED [facility] Lactated Ringer's (Ringers, Lactated) 1,000 mls @ 250 mls/hr IV ASDIRECTED [facility] Last Admin: 03/27/18 04:40 Dose: 250 mls/hr Ketorolac Tromethamine (Toradol) 15 mg IVPUSH Q6H PRN PRN Reason: Pain Stop: 03/31/18 10:26 Last Admin: 03/27/18 08:37 Dose: 15 mg Miscellaneous Information (Remove Patch) 1 ea TRDERM ONETIME ONE Stop: 03/28/18 07:01 Last Admin: 03/28/18 09:20 Dose: 1 ea Scopolamine (Transderm-Scop) 1.5 mg TOP ONETIME ONE Stop: 03/26/18 07:01 Last Admin: 03/26/18 08:40 Dose: 1.5 mg - Infant Interaction Infant Disposition, : [place] in Room with Family Feeding: Attempted ; Nursed Fair/Poor Support Person: Sister - Recovery Exam Fundal Tone: Firm Fundal Level: At Umbilicus Fundal Placement: Midline Lochia Amount: Small Lochia Color: Rubra/Red Perineum Description: Intact, Minimal Bruising/Swelling Episiotomy/Laceration: None Bladder Status: Voiding Urinary Elimination: Voided - Exam General: Alert, Oriented HEENT: Pupils Equal Neck: Supple Lungs: Clear to Auscultation, Normal Respiratory Effort Cardiovascular: Regular Rate, Regular Rhythm GI/Abdominal Exam: Normal Bowel Sounds, Soft, Non-Tender, No Organomegaly, No Distention, No Abnormal Bruit, No Mass, Pelvis Stable Extremities: Normal Inspection, Normal Range of Motion, Non-Tender, No Pedal Edema, Normal Capillary Refill Skin: Warm, Dry, Intact Wound/Incisions: Healing Well Neurological: No New Focal Deficit Psy/Mental Status: Alert, Normal Affect, Normal Mood - Problem List & Annotations (1) exam SNOMED Code(s): 677504742, 001784556 Code(s): Z39.2 - ENCOUNTER FOR ROUTINE FOLLOW-UP Status: Acute Current Visit: Yes (2) Asthma SNOMED Code(s): 715162501 Code(s): J45.909 - UNSPECIFIED ASTHMA, UNCOMPLICATED Status: Acute Current Visit: Yes Qualifiers: Asthma severity: moderate (3) Pruritus SNOMED Code(s): 286905856 Code(s): L29.9 - PRURITUS, UNSPECIFIED Status: Acute Current Visit: Yes (4) Obesity SNOMED Code(s): 676972853, 112035393 Code(s): E66.9 - OBESITY, UNSPECIFIED Status: Chronic Current Visit: Yes Qualifiers: Obesity type: due to excess calories (5) Status post SNOMED Code(s): 119719247, 134231503 Code(s): Z98.891 - HISTORY OF UTERINE SCAR FROM PREVIOUS SURGERY Status: Acute Current Visit: Yes - Problem List Review Problem List Initiated/Reviewed/Updated: Yes - My Orders Last 24 Hours: My Active Orders 03/27/18 08:30 Peripheral IV Discontinue [OM.PC] Routine 03/27/18 08:55 Urinary Catheter Removal [RC] Per Unit Routine Acetaminophen/HYDROcodone [[place] 325-5 MG] 1 tab PO Q6H PRN hydrOXYzine pamoate [Vistaril] 50 mg PO Q6H PRN Peripheral IV Discontinue [OM.PC] Routine 03/27/18 09:00 Enoxaparin [Lovenox] 40 mg SUBCUT DAILY predniSONE 20 mg PO BID 03/27/18 10:21 DC Knowles Catheter [Urinary Catheter Removal] [RC] Per Unit Routine 03/27/18 14:00 Ibuprofen [Motrin] 600 mg PO Q6H - Plan Plan:: DC home today
--- NOTE | 2018-03-28 11:34 | DISCH ---
DISCHARGE DATE: 03/28/2018 REASON FOR ADMISSION: 1. Term . 2. Obesity. 3. Repeat . 4. Asthma. 5. GERD. DISCHARGE DIAGNOSIS: Repeat . CONSULTATIONS: None. BRIEF HISTORY AND HOSPITAL COURSE: This is a 33-year-old female, G2, P1, who was admitted at 39 weeks for repeat , which went well, and done by myself and Dr. Glynn on the . She has done well postoperatively. She is and supplementing with formula, ready to go home today. We will discharge home with hydrocodone for pain, to see me in the clinic in 1 week. I spent more than 35 minutes in the discharge of the patient. /[id number] KENISHA/KHADIJAH
[2018-03-28 18:31] VITALS: BP 110/61
== END 2018-03-28 18:15 | disposition home or self-care (01) | DRG 788 ==
LOC: FB.OB 07:15
PROVIDERS: ADMIT Family Medicine; ATTEND Family Medicine
PROC: 10D00Z1 Extraction of Products of Conception, Low, Open Approach (ICD-10-PCS; principal; 2018-03-26)
DX: O34.211 Maternal care for low transverse scar from previous cesarean delivery (principal); N85.8 Other specified noninflammatory disorders of uterus; Z3A.39 39 weeks gestation of pregnancy; Z37.0 Single live birth; O99.334 Smoking (tobacco) complicating childbirth; O99.52 Diseases of the respiratory system complicating childbirth; O99.214 Obesity complicating childbirth; J45.909 Unspecified asthma, uncomplicated
CPT/HCPCS: 36415; 85025; 86850; 86900; 86901; 88307; 94150; 94640; A9270-GY; J0690; J1200; J1650; J1885; J2250; J2270; J2405; J2590; J3010; J3410; J3490; J7030; J7120; J7620-GY

== ENCOUNTER 2018-04-02 18:39 | Emergency (ER) | payer MEDICAID ==
[2018-04-02] MEDS ORDERED: Ondansetron 8 MG Tab.DIS PO ONE (18:44)
[2018-04-02] MEDS ORDERED: SUMAtriptan 6 MG/0.5 ML SDV SUBCUT ONE (18:44)
--- NOTE | 2018-04-02 18:46 | EDM.PDOC ---
ED HPI GENERAL MEDICAL PROBLEM - General Chief Complaint: Headache Stated Complaint: HEADACHE Time Seen by Provider: 04/02/18 18:43 Source of Information: Reports: Patient History Limitations: Reports: No Limitations - History of Present Illness INITIAL COMMENTS - FREE TEXT/NARRATIVE: 33 y.o.w.f who gave marian 1 week ago, spinal anesthesia was applied. No pt came to the ed with acute frantal headache with nausea and photophobia. No trauma. No other acute medical issue. Pt's HR was 53 on admission to the ED BP was 154/ 75 Temp 36.8 RR 18 Pulse ox 98% on RA Onset Date: 04/01/18 Onset Time: 10:00 Duration: Hour(s):, Day(s):, Getting Worse, Intermittent Location: Reports: Head, Face Quality: Reports: Ache, Burning, Dull Severity: Mild Improves with: Reports: Medication, Rest Worsens with: Reports: None Context: Reports: Other (spinal tab one week ago.) Associated Symptoms: Reports: Other (nausea) headache Pain Score (Numeric/FACES): 10 - Related Data Allergies Allergy/AdvReac Type Severity Reaction Status Date / Time No Known Allergies Allergy Verified 04/02/18 19:16 Home Meds: Home Meds Acetaminophen/HYDROcodone [[place] 325-5 MG] 1 tab PO Q6H PRN #20 tablet 03/28/18 [Rx] Ibuprofen [Motrin] 600 mg PO Q6H #30 tablet 03/28/18 [Rx] hydrOXYzine pamoate [Vistaril] 50 mg PO Q6H PRN #15 cap 03/28/18 [Rx] Acetaminophen/Butalbital/Caff [Fioricet 325-50-40 MG] 1 each PO BID PRN #20 tab 04/02/18 [Rx] Past Medical History - Past Health History Medical/Surgical History: Denies Medical/Surgical History HEENT History: Reports: Impaired Vision, Otitis Media, Sinusitis Cardiovascular History: Reports: None Respiratory History: Reports: Asthma Other Respiratory History: smoker who quit 10 days ago Gastrointestinal History: Reports: GERD Genitourinary History: Reports: None 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 (See Below) Other BUILDING SERVICES TECHNICIAN History: INVERTED PELVIS Musculoskeletal History: Reports: Back Pain, Chronic Other Musculoskeletal History: rt shoulder dislocation Neurological History: Reports: Migraines Psychiatric History: Reports: None Endocrine/Metabolic History: Reports: Obesity/BMI 30+ Other Endocrine/Metabolic History: had gestatinal diabetes with first Hematologic History: Reports: None Dermatologic History: Reports: Cellulitis - Infectious Disease History Infectious Disease History: Reports: Chicken Pox - Past Surgical History Musculoskeletal Surgical History: Reports: Other (See Below) Other Musculoskeletal Surgeries/Procedures:: DISLOCATED RIGHT SHOULDER AT PRESENT TIME. PT REFUSES ANY SURGERY. Social & Family History - Family History Family Medical History: Noncontributory - Caffeine Use Caffeine Use: Reports: Coffee, Energy Drinks ED ROS GENERAL - Review of Systems Review Of Systems: See Below Constitutional: Reports: No Symptoms HEENT: Reports: No Symptoms Respiratory: Reports: No Symptoms Cardiovascular: Reports: No Symptoms Endocrine: Reports: No Symptoms GI/Abdominal: Reports: No Symptoms : Reports: No Symptoms Musculoskeletal: Reports: No Symptoms Skin: Reports: No Symptoms Neurological: Reports: Headache Psychiatric: Reports: No Symptoms Hematologic/Lymphatic: Reports: No Symptoms Immunologic: Reports: No Symptoms ED EXAM, HEAD INJURY - Physical Exam Exam: See Below Exam Limited By: No Limitations General Appearance: Alert, WD/WN, Moderate Distress Head: Atraumatic, Normocephalic Eyes: Bilateral Eye: Normal Inspection Ears: Normal External Exam Nose: Normal Inspection Throat/Mouth: Normal Inspection, Normal Lips, Normal Voice, No Airway Compromise Neck: Non-Tender, Full Range of Motion, Normal Alignment, Normal Inspection Respiratory: No Respiratory Distress, Lungs Clear, Normal Breath Sounds Cardiovascular: Normal Peripheral Pulses, Regular Rate, Rhythm, No Edema, No Gallop, No Rub GI/Abdominal Exam: Normal Bowel Sounds (Female) Exam: Deferred Rectal (Female) Exam: Deferred Back Exam: Normal Inspection Extremities: Normal Inspection, Normal Range of Motion, Non-Tender, No Pedal Edema Neurologic: unload associate II-XII nml As Tested, No Motor/Sensory Deficits, Oriented x 3 - [place] Coma Score Best Eye Response (Erie): (4) Open Spontaneously Best Verbal Response (Marilyn): (5) Oriented Best Motor Response (Marilyn): (6) Obeys Commands Marilyn Total: 15 EKG INTERPRETATION EKG Date: 04/02/18 Time: 20:40 Rhythm: NSR Rate (Beats/Min): 40 [place]: Normal P-Wave: Present QRS: Normal ST-T: Normal QT: Normal Comparison: NA - No Prior EKG Course - Vital Signs Text/Narrative:: 33 y.o.w.f who gave marian 1 week ago, spinal anesthesia was applied. No pt came to the ed with acute frantal headache with nausea and photophobia. No trauma. No other acute medical issue. Pt's HR was 53 on admission to the ED BP was 154/ 75 Temp 36.8 RR 18 Pulse ox 98% on RA PE: Morbid obese 33 y.o.w f with frontal Headache, nausea and photophobia Imaging: Not indicated Labs: CBC, BMP nl BUN = 6 Glc 73 Impression: S/P c section 1 week ago, migraine H/A, nonsymptomatic Bradycardia 7.35 pm Consultation: Anselmo KIRAN Anesthesia regarding Blood patch: Pt is not a candidate for a blood patch, recommended Dilaudid, Vistaril and Fioricet Tx: Imitrex, Zofran Fioricet, Dilaudid and Vistaril Reexam: 100% improvement Plan: D/C with instructions Last Recorded V/S: Last Vital Signs Temp 36.8 C 04/02/18 19:52 Pulse 43 L 04/02/18 19:52 Resp 16 04/02/18 19:52 BP 162/78 H 04/02/18 19:52 Pulse Ox 98 04/02/18 19:52 - Orders/Labs/Meds Orders: Active Orders 24 hr Category Date Time Status EKG Documentation Completion [RC] ASDIRECTED Care 04/02/18 20:08 Active EKG 12 Lead [EK] Routine Ther 04/02/18 20:08 Ordered Labs: Laboratory Tests 04/02/18 04/02/18 04/02/18 Range/Units 21:25 21:25 21:25 WBC 8.7 (4.5-12.0) X10-3/uL RBC 3.88 (3.23-5.20) x10(6)uL Hgb 11.8 (11.5-15.5) g/dL Hct 34.4 (30.0-51.3) % MCV 88.7 (80-96) fL MCH 30.6 (27.7-33.6) pg MCHC 34.5 (32.2-35.4) g/dL RDW 13.0 (11.5-15.5) % Plt Count 493 H (125-369) X10(3)uL MPV 8.3 (7.4-10.4) fL Neut % (Auto) 74.8 (46-82) % Lymph % (Auto) 14.4 (13-37) % [place] % (Auto) 6.4 (4-12) % Eos % (Auto) 2 (1.0-5.0) % Baso % (Auto) 3 H (0-2) % Neut # (Auto) 6.5 (1.6-8.3) # Lymph # (Auto) 1.3 (0.6-5.0) # [place] # (Auto) 0.6 (0.0-1.3) # Eos # (Auto) 0.1 (0.0-0.8) # Baso # (Auto) 0.2 (0.0-0.2) # Sodium 140 (135-145) mmol/L Potassium 3.9 (3.5-5.3) mmol/L Chloride 104 (100-110) mmol/L Carbon Dioxide 28 (21-32) mmol/L BUN 6 L (7-18) mg/dL Creatinine 0.8 (0.55-1.02) mg/dL Est Cr Clr Drug Dosing TNP Estimated GFR (MDRD) > 60 (>60) BUN/Creatinine Ratio 7.5 L (9-20) Glucose 76 L (80-116) mg/dL Calcium 8.4 L (8.6-10.2) mg/dL Troponin I < 0.017 L (<0.017-0.056) ng/mL Meds: Medications Discontinued Medications Generic Name Dose Route Start Last Admin Trade Name Freq PRN Reason Stop Dose Admin Acetaminophen/Butalbital/Caffeine 1 tab 04/02/18 19:54 04/02/18 20:18 Fioricet 325-50-40 Mg PO 04/02/18 19:55 1 tab ONETIME ONE Administration Hydromorphone HCl 1 mg 04/02/18 19:55 04/02/18 20:15 Dilaudid IM 04/02/18 19:56 1 mg ONETIME ONE Administration Hydroxyzine HCl 50 mg 04/02/18 19:53 04/02/18 20:23 Vistaril IM 04/02/18 19:54 Not Given ONETIME ONE Hydroxyzine HCl 50 mg 04/02/18 20:09 04/02/18 20:17 Vistaril IM 04/02/18 20:10 50 mg ONETIME ONE Administration Ondansetron HCl 8 mg 04/02/18 18:44 04/02/18 19:04 Zofran Odt PO 04/02/18 18:45 8 mg ONETIME ONE Administration Sumatriptan Succinate 6 mg 04/02/18 18:44 04/02/18 19:04 Imitrex SUBCUT 04/02/18 18:45 6 mg ONETIME ONE Administration Departure - Departure Time of Disposition: 22:03 Disposition: Home, Self-Care 01 Condition: Good Clinical Impression: Tension type headache, unspecified, Bradycardia by electrocardiogram - Discharge Information Prescriptions: Acetaminophen/Butalbital/Caff [Fioricet 325-50-40 MG] 1 each PO BID PRN #20 tab PRN Reason: for severe headache Instructions: Bradycardia, Adult, Tension Headache, Adult, [id number] Referrals: Graeme Hein MD [Primary Care Provider] - Forms: ED Department Discharge Additional Instructions: Please increase water intake, please the the meds as recommended, please f/u, come back if your symptoms get worse acutely - My Orders Last 24 Hours: My Active Orders 04/02/18 20:08 EKG Documentation Completion [RC] ASDIRECTED EKG 12 Lead [EK] Routine - Assessment/Plan Last 24 Hours: My Active Orders 04/02/18 20:08 EKG Documentation Completion [RC] ASDIRECTED EKG 12 Lead [EK] Routine
[2018-04-02] MEDS ORDERED: hydrOXYzine HCl 50 MG/ML SDV IM ONE ×2 (19:53→20:09)
[2018-04-02] MEDS ORDERED: Acetaminophen/Butalbital/Caffeine 325-50-40 MG Tab PO ONE (19:54)
[2018-04-02] MEDS ORDERED: HYDROmorphone 2 MG/ML SDV IM ONE (19:55)
[2018-04-03 00:53] VITALS: BP 169/74
== END 2018-04-02 22:18 | disposition home or self-care (01) ==
LOC: FB.ED 18:39
DX: O99.355 Diseases of the nervous system complicating the puerperium (principal); G43.909 Migraine, unspecified, not intractable, without status migrainosus; G44.209 Tension-type headache, unspecified, not intractable; O99.89 Other specified diseases and conditions complicating pregnancy, childbirth and the puerperium; R00.1 Bradycardia, unspecified
CPT/HCPCS: 36415; 80048; 84484; 85025; 93005; 96372; 99284; A9270-GY; J1170; J3030; J3410

== ENCOUNTER 2019-04-05 19:25 | Emergency (ER) | payer MEDICAID ==
--- NOTE | 2019-04-05 20:04 | EDM.PDOC ---
ED HPI GENERAL MEDICAL PROBLEM - General Chief Complaint: Back Pain or Injury Stated Complaint: BACK SWOLLEN; BACK PAIN Time Seen by Provider: 04/05/19 19:40 Source of Information: Reports: Patient History Limitations: Reports: No Limitations - History of Present Illness INITIAL COMMENTS - FREE TEXT/NARRATIVE: states she was cleaning out her sisters house and drinking , and woke this am to find swelling pain and a sore on her right flank. does not recall hurting herself, denies any fall or trauma has pain and swelling in the area , localized , no radiation Onset: Sudden Onset Date: 04/04/19 Location: Reports: Back Quality: Reports: Ache, Burning Severity: Moderate Improves with: Reports: Cold Therapy, Heat Therapy Worsens with: Reports: Movement Context: Reports: Trauma Associated Symptoms: Reports: Confusion - Related Data Allergies Allergy/AdvReac Type Severity Reaction Status Date / Time No Known Allergies Allergy Verified 04/05/19 19:42 Home Meds: Home Meds Amoxicillin 500 mg PO DAILY 04/05/19 [History] Mupirocin Cream [Bactroban Crm] 30 gm TP BID PRN #1 tube 04/05/19 [Rx] Past Medical History - Past Health History Medical/Surgical History: Denies Medical/Surgical History HEENT History: Reports: Impaired Vision, Otitis Media, Sinusitis Cardiovascular History: Reports: None Respiratory History: Reports: Asthma Other Respiratory History: smoker who quit 10 days ago Gastrointestinal History: Reports: GERD Genitourinary History: Reports: None 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 (See Below) Other NURSERYMAN ASSISTANT History: INVERTED PELVIS Musculoskeletal History: Reports: Back Pain, Chronic Other Musculoskeletal History: rt shoulder dislocation Neurological History: Reports: Migraines Psychiatric History: Reports: None Endocrine/Metabolic History: Reports: Obesity/BMI 30+ Other Endocrine/Metabolic History: had gestatinal diabetes with first Hematologic History: Reports: None Dermatologic History: Reports: Cellulitis - Infectious Disease History Infectious Disease History: Reports: Chicken Pox - Past Surgical History Musculoskeletal Surgical History: Reports: Other (See Below) Other Musculoskeletal Surgeries/Procedures:: DISLOCATED RIGHT SHOULDER AT PRESENT TIME. PT REFUSES ANY SURGERY. Social & Family History - Family History Family Medical History: Noncontributory - Caffeine Use Caffeine Use: Reports: Coffee, Energy Drinks ED ROS GENERAL - Review of Systems Review Of Systems: See Below Constitutional: Reports: No Symptoms HEENT: Reports: No Symptoms Respiratory: Reports: No Symptoms Cardiovascular: Reports: No Symptoms Endocrine: Reports: No Symptoms GI/Abdominal: Reports: No Symptoms Musculoskeletal: Reports: Back Pain (in right CVA area , has tender swelling with abrasion) Skin: Reports: Bruising, Rash Neurological: Reports: No Symptoms Psychiatric: Reports: No Symptoms Hematologic/Lymphatic: Reports: No Symptoms Immunologic: Reports: No Symptoms ED EXAM,LOWER BACK PAIN/INJURY - Physical Exam Exam: See Below Exam Limited By: No Limitations General Appearance: Alert, WD/WN, No Apparent Distress Eye Exam: Bilateral Eye: EOMI Ears: Normal External Exam Nose: Normal Inspection Throat/Mouth: Normal Inspection Head: Atraumatic, Normocephalic Neck: Supple, Non-Tender Respiratory/Chest: Lungs Clear Cardiovascular: Regular Rate, Rhythm Back Exam: Paraspinal Tenderness, Other (tender right paraspinal lumbar region with abrasion about [id number]) Departure - Departure Time of Disposition: 08:05 Disposition: Home, Self-Care 01 Condition: Good Clinical Impression: Abrasion of skin, Strain of lumbar paraspinal muscle Obesity Qualifiers: Obesity type: due to excess calories - Discharge Information *PRESCRIPTION DRUG MONITORING PROGRAM REVIEWED*: Not Applicable *COPY OF PRESCRIPTION DRUG MONITORING REPORT IN PATIENT DELILAH: Not Applicable Instructions: Lumbosacral Strain Referrals: Graeme Hein MD [Primary Care Provider] -
[2019-04-05 20:52] VITALS: BP 122/40; PULSE 80
== END 2019-04-05 20:18 | disposition home or self-care (01) ==
LOC: FB.ED 19:25
DX: S39.012A Strain of muscle, fascia and tendon of lower back, initial encounter (principal); J45.909 Unspecified asthma, uncomplicated; E66.9 Obesity, unspecified; Z68.43 Body mass index [BMI] 50.0-59.9, adult; Z87.891 Personal history of nicotine dependence; X58.XXXA Exposure to other specified factors, initial encounter
CPT/HCPCS: 99283

== ENCOUNTER 2019-07-22 12:29 | Emergency (ER) | payer SELFPAY ==
--- NOTE | 2019-07-22 12:54 | EDM.PDOC ---
ED HPI GENERAL MEDICAL PROBLEM - General Chief Complaint: Lower Extremity Injury/Pain Stated Complaint: L FOOT INJURY Time Seen by Provider: 07/22/19 13:15 Source of Information: Reports: Patient History Limitations: Reports: No Limitations - History of Present Illness INITIAL COMMENTS - FREE TEXT/NARRATIVE: Patient twisted her left ankle after she stepped in a pothole yesterday. She also sustained an abrasion to her left knee as a result. Patient developed ankle pain this morning, she did not have pain immediately after the fall. Patient also has a skin infection to her left lower leg x 1 week, prior h/o MRSA , taking Keflex w/o improvement. Last Tetanus booster was 2015. Onset Date: 07/21/19 Location: Reports: Lower Extremity, Left Quality: Reports: Ache Severity: Moderate - Related Data Allergies Allergy/AdvReac Type Severity Reaction Status Date / Time dust Allergy Sneezing, Uncoded 07/22/19 13:04 Respiratory Issues pollens Allergy Sneezing, Uncoded 07/22/19 13:05 Respiratory Issues Home Meds: Home Meds Sulfamethoxazole/Trimethoprim [Bactrim Ds Tablet] 1 each PO BID #20 tablet 07/21 [Rx] Past Medical History HEENT History: Reports: Impaired Vision, Otitis Media, Sinusitis Cardiovascular History: Reports: None Respiratory History: Reports: Asthma Other Respiratory History: smoker who quit 10 days ago Gastrointestinal History: Reports: GERD Genitourinary History: Reports: None 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 (See Below) Other AUTO MECHANIC APPRENTICE History: INVERTED PELVIS Musculoskeletal History: Reports: Back Pain, Chronic Other Musculoskeletal History: rt shoulder dislocation Neurological History: Reports: Migraines Psychiatric History: Reports: None Endocrine/Metabolic History: Reports: Obesity/BMI 30+ Other Endocrine/Metabolic History: had gestatinal diabetes with first Hematologic History: Reports: None Dermatologic History: Reports: Cellulitis (MRSA) - Infectious Disease History Infectious Disease History: Reports: Chicken Pox - Past Surgical History Musculoskeletal Surgical History: Reports: Other (See Below) Other Musculoskeletal Surgeries/Procedures:: DISLOCATED RIGHT SHOULDER AT PRESENT TIME. PT REFUSES ANY SURGERY. Social & Family History - Family History Family Medical History: Noncontributory - Caffeine Use Caffeine Use: Reports: Coffee, Energy Drinks Review of Systems - Review of Systems Review Of Systems: Comprehensive ROS is negative, except as noted in HPI. ED EXAM, GENERAL - Physical Exam Exam: See Below Exam Limited By: No Limitations General Appearance: Alert, WD/WN, No Apparent Distress Throat/Mouth: No Airway Compromise Head: Atraumatic, Normocephalic Neck: Full Range of Motion Respiratory/Chest: No Respiratory Distress Peripheral Pulses: 2+: Dorsalis Pedis (L) Extremities: Normal Capillary Refill, Other (tenderness and swelling to lateral malleolus of left ankle) Neurological: Alert, Normal Cognition, No Motor/Sensory Deficits Psychiatric: Normal Affect, Normal Mood Skin Exam: Warm, Dry, Other (Right knee abrasion. Left lower leg erythema, warmth and induration.) Course - Vital Signs Last Recorded V/S: Last Vital Signs Temp 36.6 C 07/22/19 12:35 Pulse 76 07/22/19 12:35 Resp 20 07/22/19 12:35 BP 140/70 07/22/19 12:35 Pulse Ox 100 07/22/19 12:35 - Orders/Labs/Meds Orders: Active Orders 24 hr Category Date Time Status Ankle Min 3V Lt [CR] Stat Exams 07/22/19 12:48 Taken Departure - Departure Time of Disposition: 13:33 Disposition: Home, Self-Care 01 Condition: Good Clinical Impression: Left ankle sprain Qualifiers: Encounter type: initial encounter Involved ligament of ankle: unspecified ligament Qualified Code(s): S93.402A - Sprain of unspecified ligament of left ankle, initial encounter Cellulitis Qualifiers: Site of cellulitis: extremity Site of cellulitis of extremity: lower extremity Laterality: left Qualified Code(s): L03.116 - Cellulitis of left lower limb - Discharge Information *PRESCRIPTION DRUG MONITORING PROGRAM REVIEWED*: No *COPY OF PRESCRIPTION DRUG MONITORING REPORT IN PATIENT DELILAH: Not Applicable Prescriptions: Sulfamethoxazole/Trimethoprim [Bactrim Ds Tablet] 1 each PO BID #20 tablet Instructions: Cellulitis, Adult, [id number], How to Use a Stirrup Ankle Brace , [id number], Ankle Sprain, [id number], Crutch Use, Adult, [id number] Referrals: Graeme Hein MD [Primary Care Provider] - Forms: ED Department Discharge Additional Instructions: Fill the Bactrim prescription at [facility] and take as directed. Weight bear as tolerated. Take OTC Ibuprofen as needed. Ice the ankle. Follow up with your primary physician in 3-4 days if symptoms don't improve. Sepsis Event Note - Focused Exam Vital Signs: Vital Signs Temp Pulse Resp BP Pulse Ox 07/22/19 12:35 36.6 C 76 20 140/70 100 Date Exam was Performed: 07/22/19 Time Exam was Performed: 13:22 - My Orders Last 24 Hours: My Active Orders 07/22/19 12:48 Ankle Min 3V Lt [CR] Stat - Assessment/Plan Last 24 Hours: My Active Orders 07/22/19 12:48 Ankle Min 3V Lt [CR] Stat
[2019-07-22 13:07] VITALS: BP 140/70; PULSE 76
== END 2019-07-22 13:45 | disposition home or self-care (01) ==
LOC: FB.ED 12:29
DX: S93.402A Sprain of unspecified ligament of left ankle, initial encounter (principal); L03.116 Cellulitis of left lower limb; J45.909 Unspecified asthma, uncomplicated; Z87.891 Personal history of nicotine dependence; E66.9 Obesity, unspecified; Z68.43 Body mass index [BMI] 50.0-59.9, adult; Z91.09 Other allergy status, other than to drugs and biological substances; X50.1XXA Overexertion from prolonged static or awkward postures, initial encounter
CPT/HCPCS: 73610-LT; 99283

== ENCOUNTER 2020-02-22 18:07 | Emergency (ER) | payer SELFPAY ==
[2020-02-22] MEDS ORDERED: Ketorolac 60 MG/2 ML SDV IM ONE (18:45)
[2020-02-22] MEDS ORDERED: Penicillin V Potassium 500 MG Tab PO ONE (19:03)
[2020-02-22] MEDS ORDERED: Lidocaine 2% Viscous Solution 15 ML Cup PO ONE (19:04)
[2020-02-22] MEDS ORDERED: Amoxicillin 500 MG Cap PO ONE ×2 (19:06→19:09)
--- NOTE | 2020-02-22 19:14 | EDM.PDOC ---
ED HPI GENERAL MEDICAL PROBLEM - General Chief Complaint: ENT Problem Stated Complaint: ABSESS IN MOUTH Time Seen by Provider: 02/22/20 19:14 Source of Information: Reports: Patient History Limitations: Reports: No Limitations - History of Present Illness INITIAL COMMENTS - FREE TEXT/NARRATIVE: c/o tooth pain x 1w b/l does not have [place] Medicaid, not able to get into [facility] in [place], may need to go to [place] pt working on getting Medicaid no fever, no swell using apap and Ambesol right top and left lower tooth pain Pain Score (Numeric/FACES): 10 - Related Data Allergies Allergy/AdvReac Type Severity Reaction Status Date / Time dust Allergy Sneezing, Uncoded 07/22/19 13:04 Respiratory Issues pollens Allergy Sneezing, Uncoded 07/22/19 13:05 Respiratory Issues Home Meds: Home Meds Sulfamethoxazole/Trimethoprim [Bactrim Ds Tablet] 1 each PO BID #20 tablet 07/22/19 [Rx] Amoxicillin 500 mg PO TID #30 tab 02/22/20 [Rx] Lidocaine 2% [Xylocaine 2% Viscous] 15 ml PO ASDIRECTED #1 cup 02/22/20 [Rx] Past Medical History - Past Health History Medical/Surgical History: Denies Medical/Surgical History HEENT History: Reports: Impaired Vision, Otitis Media, Sinusitis Cardiovascular History: Reports: None Respiratory History: Reports: Asthma Other Respiratory History: smoker who quit 10 days ago Gastrointestinal History: Reports: GERD Genitourinary History: Reports: None 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 Endocrine/Metabolic History: Reports: Obesity/BMI 30+ Other Endocrine/Metabolic History: had gestatinal diabetes with first Hematologic History: Reports: None Dermatologic History: Reports: Cellulitis Other Dermatologic History: States history of MRSA. - Infectious Disease History Infectious Disease History: Reports: Chicken Pox - Past Surgical History HEENT Surgical History: Reports: Tonsillectomy Respiratory Surgical History: Reports: None Female Surgical History: Reports: Section, Other (See Below) Other Female Surgeries/Procedures: X 2. Endocrine Surgical History: Reports: None Musculoskeletal Surgical History: Reports: Other (See Below) Other Musculoskeletal Surgeries/Procedures:: DISLOCATED RIGHT SHOULDER AT PRESENT TIME. PT REFUSES ANY SURGERY. Social & Family History - Family History Family Medical History: No Pertinent Family History - Tobacco Use Tobacco Use Status *Q: Current Every Day Tobacco User Years of Tobacco use: 30 Packs/Tins Daily: 0.5 - Caffeine Use Caffeine Use: Reports: Coffee, Energy Drinks ED ROS ENT - Review of Systems Review Of Systems: See Below Constitutional: Reports: No Symptoms HEENT: Reports: Dental Pain Respiratory: Reports: No Symptoms Endocrine: Reports: No Symptoms GI/Abdominal: Reports: No Symptoms : Reports: No Symptoms Musculoskeletal: Reports: No Symptoms Skin: Reports: No Symptoms Neurological: Reports: No Symptoms Psychiatric: Reports: No Symptoms Hematologic/Lymphatic: Reports: No Symptoms Immunologic: Reports: No Symptoms ED EXAM, ENT - Physical Exam Exam: See Below Exam Limited By: No Limitations General Appearance: Alert, WD/WN Ears: Normal External Exam Nose: Normal Inspection Mouth/Throat: Other (deep erosions of teeth #2 and #15, gingiva not red or swollen, no cervical LNs, cheek not swollen, does have 1+ tender to palpation, multiple other teeth with caries) Head: Atraumatic, Normocephalic Neck: Normal Inspection, Supple, Non-Tender, Full Range of Motion Respiratory/Chest: No Respiratory Distress Cardiovascular: Regular Rate, Rhythm Course - Vital Signs Last Recorded V/S: Last Vital Signs Temp 36.8 C 02/22/20 18:07 Pulse 87 02/22/20 18:07 Resp 17 02/22/20 18:07 BP 147/79 H 02/22/20 18:07 Pulse Ox 100 02/22/20 18:07 - Orders/Labs/Meds Orders: Active Orders 24 hr Category Date Time Status Amoxicillin [Amoxil] Med 02/23/20 07:00 Once 500 mg PO ONETIME ONE Medication Orders Amoxicillin (Amoxil) 500 mg PO ONETIME ONE Stop: 02/23/20 07:01 Meds: Medications Generic Name Dose Route Start Last Admin Trade Name Freq PRN Reason Stop Dose Admin Amoxicillin 500 mg 02/23/20 07:00 Amoxil PO 02/23/20 07:01 ONETIME ONE Discontinued Medications Generic Name Dose Route Start Last Admin Trade Name Freq PRN Reason Stop Dose Admin Amoxicillin 500 mg 02/22/20 19:06 Amoxil PO 02/22/20 19:07 ONETIME ONE Ketorolac Tromethamine 60 mg 02/22/20 18:45 02/22/20 18:50 Toradol IM 02/22/20 18:46 60 mg ONETIME ONE Administration Lidocaine HCl 15 ml 02/22/20 19:04 Xylocaine 2% Viscous PO 02/22/20 19:05 ONETIME ONE Penicillin V Potassium 500 mg 02/22/20 19:03 Veetids PO 02/22/20 19:04 NOW ONE Departure - Departure Time of Disposition: 19:08 Disposition: Home, Self-Care 01 Condition: Good Clinical Impression: Dental abscess - Discharge Information *PRESCRIPTION DRUG MONITORING PROGRAM REVIEWED*: Not Applicable *COPY OF PRESCRIPTION DRUG MONITORING REPORT IN PATIENT DELILAH: Not Applicable Prescriptions: Amoxicillin 500 mg PO TID #30 tab Lidocaine 2% [Xylocaine 2% Viscous] 15 ml PO ASDIRECTED #1 cup Instructions: Dental Abscess Referrals: Graeme Hein MD [Primary Care Provider] - Additional Instructions: For infection, take amoxicillin 500 mg 1 tab 3 times a day for 10 days. For pain, take ibuprofen 200 mg 3 tabs and acetaminophen 500 mg 2 tabs 4 times a day for 2 days, longer if needed. For pain, put a thin layer of 2% viscous lidocaine on a cotton ball and bite down every hour as needed. Use ice for 10 minutes every hour as needed. See your dentist as soon as possible. Sepsis Event Note (ED) - Evaluation Sepsis Screening Result: No Definite Risk - Focused Exam Vital Signs: Vital Signs Temp Pulse Resp BP Pulse Ox 02/22/20 18:07 36.8 C 87 17 147/79 H 100 - My Orders Last 24 Hours: My Active Orders 02/23/20 07:00 Amoxicillin [Amoxil] 500 mg PO ONETIME ONE - Assessment/Plan Last 24 Hours: My Active Orders 02/23/20 07:00 Amoxicillin [Amoxil] 500 mg PO ONETIME ONE
[2020-02-22 19:26] VITALS: BP 146/88; PULSE 71
[2020-02-23] MEDS ORDERED: Amoxicillin 500 MG Cap PO ONE (07:00)
== END 2020-02-22 19:22 | disposition home or self-care (01) ==
LOC: FB.ED 18:07
DX: K04.7 Periapical abscess without sinus (principal); K02.9 Dental caries, unspecified; J45.909 Unspecified asthma, uncomplicated; F17.210 Nicotine dependence, cigarettes, uncomplicated; E66.9 Obesity, unspecified; Z91.048 Other nonmedicinal substance allergy status; Z68.43 Body mass index [BMI] 50.0-59.9, adult
CPT/HCPCS: 96372; 99282; A9270; J1885

== ENCOUNTER 2020-07-03 16:04 | Emergency (ER) | payer SELFPAY ==
[2020-07-03] MEDS ORDERED: Alum Hydroxide/Mag Hydroxide 30 ML, Lidocaine 2% 15 ML PO ONE ×4 (16:25→17:02)
[2020-07-03] MEDS ORDERED: hydrOXYzine HCl 50 MG/ML SDV IM ONE (17:24)
[2020-07-03] MEDS ORDERED: Ketorolac 30 MG/ML SDV IM ONE (17:24)
--- NOTE | 2020-07-03 18:42 | EDM.PDOC ---
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, as she was leaving the house, she ate a piece of fried potato and had a burning sensation at her lower sternum up to her throat she felt like the potato was stuck although she was able to swallow water here without difficulty the minor discomfort was gone after a GI cocktail she felt like she needed to burp and eventually did and then felt fine she got fairly anxious at one point with transient inc in BP and visible anxiety, she was hydroxyzine and Toradol and a 2nd GI cocktail which helped, altho she got the most relief when she burped her sister gave her an omeprazole at home not had GERD in past altho has taken Tums occasional for dyspepsia in the epigastrium much felt fine at time of d/c, it appears she had swallowed air due to anxiety at the time of the original lower esophageal burning, she may have had spasm of the esophagus altho this seems unlikely trop neg, no CV concerns by hx/PE/labs Midsternal chest Pain Score (Numeric/FACES): 0 - Related Data Allergies Allergy/AdvReac Type Severity Reaction Status Date / Time dust Allergy Sneezing, Uncoded 07/03/20 16:33 Respiratory Issues pollens Allergy Sneezing, Uncoded 07/03/20 16:33 Respiratory Issues Home Meds: Home Meds Acetaminophen [Tylenol Extra Strength] 1,000 mg PO Q8H PRN 06/27/20 [History] Acetaminophen/HYDROcodone [[place] 325-5 MG] 1 - 2 tab PO Q6H PRN #10 tab 06/27/20 [Rx] Clindamycin HCl 450 mg PO TID 07/03/20 [History] Omeprazole 20 mg PO DAILY #10 tablet. 07/03/20 [Rx] Past Medical History - Past Health History Medical/Surgical History: Denies Medical/Surgical History HEENT History: Reports: Impaired Vision, Otitis Media, Sinusitis Cardiovascular History: Reports: None Respiratory History: Reports: Asthma Other Respiratory History: chronic smoker. 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 Also states that she has a lot of anxtiey but is not taking any medications. Endocrine/Metabolic History: Reports: Diabetes, Gestational, Obesity/BMI 30+ Other Endocrine/Metabolic History: had gestatinal diabetes with first Hematologic History: Reports: None Dermatologic History: Reports: Cellulitis Other Dermatologic History: States history of MRSA. - Infectious Disease History Infectious Disease History: Reports: Chicken Pox, MRSA - Past Surgical History Head Surgeries/Procedures: Reports: None HEENT Surgical History: Reports: Adenoidectomy, Tonsillectomy Respiratory Surgical History: Reports: None Female Surgical History: Reports: Section Other Female Surgeries/Procedures: X 2. Endocrine Surgical History: Reports: None Musculoskeletal Surgical History: Reports: Arthroscopic Procedure, Other (See Below) Other Musculoskeletal Surgeries/Procedures:: L knee scope Social & Family History - Family History Family Medical History: No Pertinent Family History - Tobacco Use Tobacco Use Status *Q: Current Every Day Tobacco User Years of Tobacco use: 14 Packs/Tins Daily: 0.3 - Caffeine Use Caffeine Use: Reports: Coffee - Recreational Drug Use Recreational Drug Use: Yes Recreational Drug Type: Reports: Marijuana/Hashish Recreational Drug Use Frequency: Socially - Living Situation & Occupation Occupation: Employed (Works at [employer]) ED ROS GENERAL - Review of Systems Review Of Systems: See Below Constitutional: Reports: No Symptoms HEENT: Reports: No Symptoms Respiratory: Reports: No Symptoms Cardiovascular: Reports: Other (lower substernal burning) Endocrine: Reports: No Symptoms GI/Abdominal: Reports: No Symptoms : Reports: No Symptoms Musculoskeletal: Reports: No Symptoms Skin: Reports: No Symptoms Neurological: Reports: No Symptoms Psychiatric: Reports: Anxiety Hematologic/Lymphatic: Reports: No Symptoms Immunologic: Reports: No Symptoms ED EXAM, GI/ABD - Physical Exam Exam: See Below Exam Limited By: No Limitations General Appearance: Alert, WD/WN, Mild Distress Throat/Mouth: Normal Inspection, Normal Lips, Normal Teeth, Normal Gums, Normal Oropharynx, Normal Voice, No Airway Compromise, Other (no swell) Head: Atraumatic, Normocephalic Neck: Normal Inspection, Supple, Non-Tender, Full Range of Motion. No: Lymphadenopathy (R), Lymphadenopathy (L) Respiratory/Chest: No Respiratory Distress, Lungs Clear, Normal Breath Sounds, No Accessory Muscle Use, Chest Non-Tender Cardiovascular: Regular Rate, Rhythm, No Edema, No Gallop, No JVD, No Murmur, No Rub Back Exam: Normal Inspection, Full Range of Motion, NT Extremities: Normal Inspection, Normal Range of Motion, Non-Tender, No Pedal Edema Neurological: Alert, Oriented, CN II-XII Intact, Normal Cognition, No Motor/Sensory Deficits Psychiatric: Normal Affect, Normal Mood Skin Exam: Warm Lymphatic: No Adenopathy Course - Vital Signs Last Recorded V/S: Last Vital Signs Temp 37.1 C 07/03/20 16:04 Pulse 90 07/03/20 16:04 Resp 22 H 07/03/20 16:04 BP 156/84 H 07/03/20 16:04 Pulse Ox 98 07/03/20 16:04 - Orders/Labs/Meds Labs: Laboratory Tests 07/03/20 07/03/20 07/03/20 Range/Units 16:15 16:15 16:15 WBC 6.9 (3.0-10.3) x10-3/uL RBC 4.44 (3.60-5.20) x10(6)uL Hgb 13.8 (11.4-15.5) g/dL Hct 41.5 (34.2-48.2) % MCV 93.5 (76.7-100.5) fL MCH 31.0 (23.9-33.9) pg MCHC 33.2 (31.9-34.8) g/dL RDW 14.3 (12.3-16.5) % Plt Count 325 (151-488) x10(3)uL MPV 8.2 (7.1-12.4) fL Neut % (Auto) 65.9 (30.8-76.2) % Lymph % (Auto) 19.7 (18.4-52.1) % Garden % (Auto) 9.9 (4.4-15.7) % Eos % (Auto) 3.6 (0.6-8.1) % Baso % (Auto) 0.9 (0.2-1.5) % Neut # (Auto) 4.6 (1.5-6.3) x10-3/uL Lymph # (Auto) 1.4 (1.0-4.4) x10-3/uL Garden # (Auto) 0.7 (0.3-1.0) x10-3/uL Eos # (Auto) 0.2 (0.0-0.8) x10-3/uL Baso # (Auto) 0.1 (0.0-0.1) x10-3/uL Sodium 139 (135-145) mmol/L Potassium 4.1 (3.5-5.3) mmol/L Chloride 101 (100-110) mmol/L Carbon Dioxide 28 (21-32) mmol/L BUN 9 (7-18) mg/dL Creatinine 0.9 (0.55-1.02) mg/dL Est Cr Clr Drug Dosing 69.66 mL/min Estimated GFR (MDRD) > 60 (>60) BUN/Creatinine Ratio 10.0 (9-20) Glucose 110 (80-116) mg/dL Calcium 8.1 L (8.6-10.2) mg/dL Total Bilirubin 0.5 (0.1-1.3) mg/dL AST 32 H (5-25) IU/L ALT 41 H (12-36) U/L Alkaline Phosphatase 92 (56-112) IU/L Troponin I < 4.0 L (4.0-60.3) pg/mL Total Protein 7.6 (6.0-8.0) g/dL Albumin 3.4 L (3.5-5.2) g/dL Globulin 4.2 g/dL Albumin/Globulin Ratio 0.8 Meds: Medications Discontinued Medications Generic Name Dose Route Start Last Admin Trade Name Freq PRN Reason Stop Dose Admin Al Hydroxide/Mg Hydroxide 30 0 ml 07/03/20 16:25 07/03/20 16:25 ml/ Lidocaine HCl 15 ml PO 07/03/20 16:26 30 ml ONETIME ONE Administration Al Hydroxide/Mg Hydroxide 30 0 ml 07/03/20 17:02 07/03/20 17:07 ml/ Lidocaine HCl 15 ml PO 07/03/20 17:03 30 ml ONETIME ONE Administration Hydroxyzine HCl 50 mg 07/03/20 17:24 Hydroxyzine Hcl 50 Mg/Ml Sdv IM 07/03/20 17:25 ONETIME ONE Ketorolac Tromethamine 60 mg 07/03/20 17:24 Ketorolac 30 Mg/Ml Sdv IM 07/03/20 17:25 ONETIME ONE - Re-Assessments/Exams Free Text/Narrative Re-Assessment/Exam: 07/03/20 18:43 pt has central obesity and the gastric bubble and abd adipose tissue with dec'd diaphragm excursion appeared to exacerbate her sxs pt had never used liquid AA, which was discussed all questions answered no work tonight recommended Departure - Departure Time of Disposition: 18:33 Disposition: Home, Self-Care 01 Condition: Good Clinical Impression: Gastroesophageal reflux disease - Discharge Information *PRESCRIPTION DRUG MONITORING PROGRAM REVIEWED*: Not Applicable *COPY OF PRESCRIPTION DRUG MONITORING REPORT IN PATIENT DELILAH: Not Applicable Prescriptions: Omeprazole 20 mg PO DAILY #10 tablet.dr Instructions: Gastroesophageal Reflux Disease, Adult Additional Instructions: To acid production, take omeprazole 20 mg 1 tab daily for 10 days. To coat and protect the esophagus, take liquid antacid (such as Maalox or Mylanta or generic) 30 ml, which is 2 tablespoons, every 4 hours as needed. May work tomorrow. See your doctor in 4-5 days for further recommendations. Call or return to Emergency Department if you are feeling worse. Sepsis Event Note (ED) - Evaluation Sepsis Screening Result: No Definite Risk - Focused Exam Vital Signs: Vital Signs Temp Pulse Resp BP Pulse Ox 07/03/20 16:04 37.1 C 90 22 H 156/84 H 98
[2020-07-03 20:31] VITALS: BP 139/93; PULSE 74
== END 2020-07-03 19:00 | disposition home or self-care (01) ==
LOC: FB.ED 16:04
DX: K21.9 Gastro-esophageal reflux disease without esophagitis (principal); Z72.0 Tobacco use; Z79.899 Other long term (current) drug therapy; Z91.048 Other nonmedicinal substance allergy status
CPT/HCPCS: 36415; 80053; 84484; 85025; 93005; 96372; 99283; A9270; J1885; J3410

== ENCOUNTER 2022-08-14 19:13 | Emergency (ER) | payer MEDICAID ==
[2022-08-14] MEDS ORDERED: traMADol 50 MG Tab PO ONE (19:14)
[2022-08-14 19:52] VITALS: BP 140/77; PULSE 80
[2022-08-14] MEDS ORDERED: predniSONE 20 MG Tab PO ONE (19:59)
== END 2022-08-14 20:30 | disposition home or self-care (01) ==
LOC: FB.ED 19:13
DX: G89.29 Other chronic pain (principal); M79.672 Pain in left foot; J45.909 Unspecified asthma, uncomplicated; Z72.0 Tobacco use; Z91.09 Other allergy status, other than to drugs and biological substances
CPT/HCPCS: 99283; A9270; J7512

== ENCOUNTER 2023-12-17 20:26 | Emergency (ER) | payer MEDICAID ==
[2023-12-17 20:40] VITALS: BP 139/93; PULSE 101
[2023-12-17 21:13] LABS: HEMATOCRIT 44.5 % (34.2-48.2); HEMOGLOBIN 15.1 g/dL (11.4-15.5); MEAN CORPUSCULAR HEMOGLOBIN 29.6 pg (23.9-33.9); MEAN CORPUSCULAR HGB CONC 33.9 g/dL (31.9-34.8); MEAN CORPUSCULAR VOLUME 87.3 fL (76.7-100.5); MEAN PLATELET VOLUME 8.3 fL (7.1-12.4); PLATELET COUNT,PLT 355 x10(3)uL (151-488); RED CELL DISTRIBUTION WIDTH 13.8 % (12.3-16.5)
[2023-12-17 21:15] LABS: BLOOD UREA NITROGEN,BUN 19 mg/dL (7-18); BUN/CREATININE RATIO 17.3 (9-20); CALCIUM 8.7 mg/dL (8.6-10.2); CARBON DIOXIDE,CO2 26 mmol/L (21-32); CHLORIDE,CL 104 mmol/L (100-110); CREATININE 1.1 mg/dL (0.55-1.02); EST CRCL DRUG DOSING (CG) 57.92 mL/min; ESTIMATED GFR 66 mL/min (>60); GLUCOSE RANDOM 109 mg/dL (80-116); POTASSIUM,K 3.2 mmol/L (3.5-5.3); SODIUM,NA 143 mmol/L (135-145)
[2023-12-17 21:25] LABS: HEMOGLOBIN A1C 5.3 % (<5.7)
[2023-12-17 21:28] LABS: INFLUENZA A NAA NEGATIVE (NEGATIVE); INFLUENZA B NAA NEGATIVE (NEGATIVE); RESPIRATORY SYNCYTIAL VIR NAA NEGATIVE (NEGATIVE)
[2023-12-17 21:31] LABS: CORONAVIRUS COVID-19 NAA NEGATIVE (NEGATIVE)
[2023-12-17 21:37] LABS: EOSINOPHILS PERCENT MAN 1 % (0-5); LYMPHOCYTES PERCENT MAN 12 % (13-37); MONOCYTES PERCENT MAN 6 % (4-12); SEG NEUTROPHILS PERCENT MAN 81 % (46-82)
[2023-12-17] MEDS: cefTRIAXone 1 GM Vial IM ONE (22:13)
== END 2023-12-17 22:18 | disposition home or self-care (01) ==
LOC: FB.ED 20:26
DX: J20.9 Acute bronchitis, unspecified (principal); Z91.048 Other nonmedicinal substance allergy status; Z79.899 Other long term (current) drug therapy
CPT/HCPCS: 0241U; 36415; 71045; 80048; 83036; 85025; 96372; 99285; J0696

== ENCOUNTER 2024-06-09 17:13 | Emergency (ER) | payer MEDICAID ==
[2024-06-09] MEDS ORDERED: Azithromycin 250 MG Tab PO ONE (17:14)
[2024-06-09 17:22] VITALS: BP 143/85; PULSE 90
[2024-06-09] MEDS ORDERED: Oxymetazoline 0.05% Nasal Spray 30 ML Bottle ONE (17:36)
== END 2024-06-09 17:47 | disposition home or self-care (01) ==
LOC: FB.ED 17:13
DX: J45.909 Unspecified asthma, uncomplicated (principal); E11.9 Type 2 diabetes mellitus without complications; E66.9 Obesity, unspecified; F17.210 Nicotine dependence, cigarettes, uncomplicated; Z72.0 Tobacco use; Z91.048 Other nonmedicinal substance allergy status
CPT/HCPCS: 99283; A9270-GY

== ENCOUNTER 2024-09-24 20:29 | Emergency (ER) | payer MEDICAID ==
[2024-09-24 20:44] VITALS: BP 119/86; PULSE 79
== END 2024-09-24 21:18 | disposition home or self-care (01) ==
LOC: FB.ED 20:29
DX: L03.115 Cellulitis of right lower limb (principal); Z22.322 Carrier or suspected carrier of Methicillin resistant Staphylococcus aureus; F17.210 Nicotine dependence, cigarettes, uncomplicated; Z91.048 Other nonmedicinal substance allergy status; Z91.018 Allergy to other foods; Z79.899 Other long term (current) drug therapy
CPT/HCPCS: 99283; A9270

== ENCOUNTER 2024-12-01 14:19 | Emergency (ER) | payer MEDICAID ==
[2024-12-01] MEDS: Albuterol 0.083% 2.5 MG/3 ML Neb Soln NEB ONE ×2 (14:33→15:10)
[2024-12-01 15:31] LABS: INFLUENZA A NAA NEGATIVE (NEGATIVE); INFLUENZA B NAA NEGATIVE (NEGATIVE); RESPIRATORY SYNCYTIAL VIR NAA NEGATIVE (NEGATIVE)
[2024-12-01 15:43] LABS: CORONAVIRUS COVID-19 NAA NEGATIVE (NEGATIVE)
[2024-12-01 16:44] VITALS: BP 126/59; PULSE 89
== END 2024-12-01 16:44 | disposition home or self-care (01) ==
LOC: FB.ED 14:19
DX: J45.901 Unspecified asthma with (acute) exacerbation (principal); J06.9 Acute upper respiratory infection, unspecified; F17.210 Nicotine dependence, cigarettes, uncomplicated; Z91.048 Other nonmedicinal substance allergy status; Z91.018 Allergy to other foods; Z79.899 Other long term (current) drug therapy; Z90.49 Acquired absence of other specified parts of digestive tract
CPT/HCPCS: 71046; 87637; 93005; 94640; 99285; A9270-GY; J7512